=== PATIENT | male | born 1950 | race Caucasian/White ===

== ENCOUNTER 2022-11-29 18:16 | Observation (INO) | payer MEDICARE ==
[2022-11-29 19:00] LABS: Glucose,Whole Blood 468 mg/dL (70-110)
[2022-11-29] MEDS ORDERED: SODIUM CHLORIDE 0.9% 1,000 ML IV STA ×2 (19:51→23:06)
--- NOTE | 2022-11-29 20:00 | ED ---
Recheck HPI - General Chief Complaint: Recheck/Abnormal Lab/Rx Stated Complaint: High Sugar Level, Type 2 [place] Time Seen by Provider: 11/29/22 19:50 Source: patient, RN notes reviewed, old records reviewed, Caregiver Mode of arrival: wheelchair Limitations: no limitations - History of Present Illness Initial Comments: This is a 72-year-old male to the ER for evaluation of elevated blood sugar. Patient states his sugars been elevated for a few days now. He does have a blood sugar monitor and does have insulin-dependent diabetes. Patient has been taking his insulin medications as described once a day long-acting. Patient states his blood sugars have still been severely elevated feels lightheaded dizzy with occasional chills occasionally feeling warm. He denies any nausea vomiting or diarrhea. No headache chest pain shortness of breath abdominal pain with no recent fevers. Patient is recently new to the area the last 2 weeks and has no primary care in [facility] Complaint: abnormal lab (Elevated blood sugars) -: days(s) Returns Today for: Called Because of Abnormal Lab/Test Symptoms Since Prior Visit: no new symptoms Context: planned re-check, called for abnormal lab result Associated Symptoms: none Treatments Prior to Arrival: other (0) - Related Data Home Medications Medication Instructions Recorded Confirmed ALPRAZolam [Xanax] 0.5 mg PO DAILY PRN 11/29/22 11/29/22 Albuterol Inhaler [Ventolin Hfa 1 - 2 puff INHALATION RT-Q6H PRN 11/29/22 11/29/22 Inhaler] Clobetasol Propionate [Temovate 1 applic TOPICAL DIRECTED PRN 11/29/22 11/29/22 0.05% Oint] Clotrimazole [Clotrimazole AF] 1 applic TOPICAL BID PRN 11/29/22 11/29/22 DULoxetine HCL [Cymbalta] 60 mg PO BID 11/29/22 11/29/22 Diclofenac Sodium Gel [Voltaren 1 applic TOPICAL QID PRN 11/29/22 11/29/22 Gel] Donepezil [Aricept] 5 mg PO DAILY 11/29/22 11/29/22 Gabapentin 600 mg PO QID 11/29/22 11/29/22 Glucagon [Baqsimi] 1 spray NASAL DIRECTED PRN 11/29/22 11/29/22 Hydrocortisone Cream 1 applic TOPICAL BID PRN 11/29/22 11/29/22 [Hydrocortisone 1% Cream] Latanoprost [Latanoprost 0.005%] 1 drop BOTH EYES HS 11/29/22 11/29/22 Pantoprazole [Protonix] 40 mg PO DAILY 11/29/22 11/29/22 Primidone [Mysoline] 100 mg PO HS 11/29/22 11/29/22 Silver Sulfadiazine [SSD 1% Cream] 1 applic TOPICAL DIRECTED PRN 11/29/22 11/29/22 Tirzepatide [Mounjaro] 10 mg SQ WE 11/29/22 11/29/22 lisinopriL [Zestril] 5 mg PO DAILY 11/29/22 11/29/22 Previous Rx's Medication Instructions Recorded INSULIN ASPART (NovoLOG) [NovoLOG 0 unit SQ ACHS 30 Days #1 each 12/01/22 (formulary)] Insulin Degludec [Tresiba 60 units SQ HS #0 12/01/22 Flextouch U-100 Pen] Allergies Allergy/AdvReac Type Severity Reaction Status Date / Time No Known Allergies Allergy Verified 11/29/22 21:50 Review of Systems ROS Statement: Those systems with pertinent positive or pertinent negative responses have been documented in the HPI. ROS Other: All systems not noted in ROS Statement are negative. Past Medical History Past Medical History: Dementia, Diabetes Mellitus, Hypertension History of Any Multi-Drug Resistant Organisms: None Reported Past Surgical History: Joint Replacement Additional Past Surgical History / Comment(s): rt hip replacement 2012, bk lleft ampuatation Past Psychological History: No Psychological Hx Reported Smoking Status: Never smoker Past Alcohol Use History: None Reported Past Drug Use History: None Reported General Exam Limitations: no limitations General appearance: alert, in no apparent distress, anxious Head exam: Present: atraumatic, normocephalic, normal inspection Eye exam: Present: normal appearance, PERRL, EOMI. Absent: scleral icterus, conjunctival injection, periorbital swelling ENT exam: Present: normal exam, mucous membranes moist Neck exam: Present: normal inspection. Absent: tenderness, meningismus, lymphadenopathy Respiratory exam: Present: normal lung sounds bilaterally. Absent: respiratory distress, wheezes, rales, rhonchi, stridor Cardiovascular Exam: Present: regular rate, normal rhythm, normal heart sounds. Absent: systolic murmur, diastolic murmur, rubs, gallop, clicks GI/Abdominal exam: Present: soft, normal bowel sounds. Absent: distended, tenderness, guarding, rebound, rigid Extremities exam: Present: normal inspection, full ROM, normal capillary refill. Absent: tenderness, pedal edema, joint swelling, calf tenderness Back exam: Present: normal inspection Neurological exam: Present: alert, oriented X3, CN II-XII intact Psychiatric exam: Present: normal affect, normal mood Skin exam: Present: warm, dry, intact, normal color. Absent: rash Course Vital Signs 11/29/22 11/29/22 11/29/22 18:48 20:19 20:30 Temperature 98.8 F Pulse Rate 78 80 76 Pulse Rate [ Pulse Oximetery ] Respiratory 18 Rate Blood Pressure 168/75 155/93 Blood Pressure [Left Arm] O2 Sat by Pulse 97 100 97 Oximetry 11/29/22 11/30/22 11/30/22 21:00 00:39 00:56 Temperature 98.1 F Pulse Rate 74 75 Pulse Rate [ 80 Pulse Oximetery ] Respiratory 18 20 Rate Blood Pressure 140/80 149/83 Blood Pressure 169/71 [Left Arm] O2 Sat by Pulse 96 97 97 Oximetry - Reevaluation(s) Reevaluation #1: Medical record is reviewed Reevaluation #2: Patient's blood sugar remains elevated here in the ER patient states he has no primary care physician in the area to see Reevaluation #3: Patient informed results and questions have been answered Reevaluation #4: Was pt. sent in by a medical professional or institution (, PA, MAINTENANCE SHOP TECHNICIAN, urgent care, hospital, or [facility]...) When possible be specific @ -no Did you speak to anyone other than the patient for history (EMS, parent, family, police, friend...)? What history was obtained from this source @ -no Did you review nursing and triage notes (agree or disagree)? Why? @ -agree Are old charts reviewed (outside hosp., previous admission, EMS record, old EKG, old radiological studies, urgent care reports/EKG's, [facility] records)? Report findings @ -yes Differential Diagnosis (chest pain, altered mental status, abdominal pain women, abdominal pain men, vaginal bleeding, weakness, fever, dyspnea, syncope, headache, dizziness, GI bleed, back pain, seizure, CVA, palpatations, mental health, musculoskeletal)? @ -prior EKG interpreted by me (3pts min.). @ -yes X-rays interpreted by me (1pt min.). @ -no CT interpreted by me (1pt min.). @ -no U/S interpreted by me (1pt. min.). @ -no What testing was considered but not performed or refused? (CT, X-rays, U/S, labs)? Why? @ -none What meds were considered but not given or refused? Why? @ -none Did you discuss the management of the patient with other professionals (professionals i.e. , PA, MAINTENANCE SHOP TECHNICIAN, lab, RT, psych nurse, medical social consultant, clay preparation supervisor, teacher, financial services officer, rn case mgr)? Give summary @ -no Was smoking cessation discussed for >3mins.? @ -no Was critical care preformed (if so, how long)? @ -no Were there social determinants of health that impacted care today? How? (Homelessness, low income, unemployed, alcoholism, drug addiction, transportation, low edu. Level, literacy, decrease access to med. care, [facility], rehab)? @ -none Was there de-escalation of care discussed even if they declined (Discuss DNR or withdrawal of care, Hospice)? DNR status @ -no What co-morbidities impacted this encounter? (DM, HTN, Smoking, COPD, CAD, Cancer, CVA, ARF, Chemo, Hep., AIDS, mental health diagnosis, sleep apnea, morbid obesity)? @ -none Was patient admitted / discharged? Hospital course, mention meds given and route, prescriptions, significant lab abnormalities, going to OR and other pertinent info. @ - 72 male admitted for hyperglycemia, patient will need outpatient follow-up for blood sugar management, primary care as well as tighter glycemic control Admitted Undiagnosed new problem with uncertain prognosis? @ -no Drug Therapy requiring intensive monitoring for toxicity (Heparin, Nitro, Insulin, Cardizem)? @ -no Were any procedures done? @ -no Diagnosis/symptom? @ -Hyperglycemia known history of diabetes Acute, or Chronic, or Acute on Chronic? @ -Acute Uncomplicated (without systemic symptoms) or Complicated (systemic symptoms)? @ -Complicated Side effects of treatment? @ -no Exacerbation, Progression, or Severe Exacerbation? @ -exacerbation Poses a threat to life or bodily function? How? (Chest pain, [place], [place], pneumonia, PE, COPD, DKA, ARF, appy, cholecystitis, CVA, Diverticulitis, Homicidal, Suicidal, threat to staff... and all critical care pts) @ -yes Reevaluation #5: Differential Weakness: Hypoglycemia, shock, sepsis, hyponatremia, anemia, infection, TX, ETOH, adverse medicine reaction, overdose, stroke, this is not meant to be an all-inclusive list. - Consultations Consultation #1: Spoke with admitting physicians who agree to see this patient Medical Decision Making - Medical Decision Making 72 male admitted for hyperglycemia, patient will need outpatient follow-up for blood sugar management, primary care as well as tighter glycemic control - Lab Data Result diagrams: 11/30/22 07:46 11/30/22 07:46 Lab Results 11/29/22 11/29/22 11/29/22 Range/Units 18:58 19:55 20:28 WBC 10.2 (3.8-10.6) k/uL RBC 4.82 (4.30-5.90) m/uL Hgb 14.2 (13.0-17.5) gm/dL Hct 43.1 (39.0-53.0) % MCV 89.4 (80.0-100.0) fL MCH 29.4 (25.0-35.0) pg MCHC 32.9 (31.0-37.0) g/dL RDW 12.8 (11.5-15.5) % Plt Count 247 (150-450) k/uL MPV 7.9 Neutrophils % 69 % Lymphocytes % 21 % Monocytes % 6 % Eosinophils % 2 % Basophils % 0 % Neutrophils # 7.0 (1.3-7.7) k/uL Lymphocytes # 2.2 (1.0-4.8) k/uL Monocytes # 0.7 (0-1.0) k/uL Eosinophils # 0.2 (0-0.7) k/uL Basophils # 0.0 (0-0.2) k/uL Sodium (137-145) mmol/L Potassium (3.5-5.1) mmol/L Chloride (98-107) mmol/L Carbon Dioxide (22-30) mmol/L Anion Gap mmol/L BUN (9-20) mg/dL Creatinine (0.66-1.25) mg/dL Est GFR (CKD-EPI)AfAm (>60 ml/min/1.73 sqM) Est GFR (CKD-EPI)NonAf (>60 ml/min/1.73 sqM) Glucose (74-99) mg/dL POC Glucose (mg/dL) 468 H (70-110) mg/dL POC Glu [employer] ID Court Rajan Calcium (8.4-10.2) mg/dL Phosphorus (2.5-4.5) mg/dL Magnesium (1.6-2.3) mg/dL Total Bilirubin (0.2-1.3) mg/dL AST (17-59) U/L ALT (4-49) U/L Alkaline Phosphatase (38-126) U/L Troponin I (0.000-0.034) ng/mL Total Protein (6.3-8.2) g/dL Albumin (3.5-5.0) g/dL Urine Color Light Yellow Urine Appearance Clear (Clear) Urine pH 5.5 (5.0-8.0) Ur Specific [place] 1.030 (1.001-1.035) Urine Protein Negative (Negative) Urine Glucose (UA) 4+ H (Negative) Urine Ketones Negative (Negative) Urine Blood Negative (Negative) Urine Nitrite Negative (Negative) Urine Bilirubin Negative (Negative) Urine Urobilinogen <2.0 (<2.0) mg/dL Ur Leukocyte Esterase Negative (Negative) Acetone, Qual (Negative) 11/29/22 11/29/22 11/29/22 Range/Units 20:28 20:28 22:43 WBC (3.8-10.6) k/uL RBC (4.30-5.90) m/uL Hgb (13.0-17.5) gm/dL Hct (39.0-53.0) % MCV (80.0-100.0) fL MCH (25.0-35.0) pg MCHC (31.0-37.0) g/dL RDW (11.5-15.5) % Plt Count (150-450) k/uL MPV Neutrophils % % Lymphocytes % % Monocytes % % Eosinophils % % Basophils % % Neutrophils # (1.3-7.7) k/uL Lymphocytes # (1.0-4.8) k/uL Monocytes # (0-1.0) k/uL Eosinophils # (0-0.7) k/uL Basophils # (0-0.2) k/uL Sodium 133 L (137-145) mmol/L Potassium 4.5 (3.5-5.1) mmol/L Chloride 97 L (98-107) mmol/L Carbon Dioxide 26 (22-30) mmol/L Anion Gap 10 mmol/L BUN 24 H (9-20) mg/dL Creatinine 1.26 H (0.66-1.25) mg/dL Est GFR (CKD-EPI)AfAm 65 (>60 ml/min/1.73 sqM) Est GFR (CKD-EPI)NonAf 57 (>60 ml/min/1.73 sqM) Glucose 441 H (74-99) mg/dL POC Glucose (mg/dL) 342 H (70-110) mg/dL POC Glu [employer] Superintendent ID Yaima Mclaughlin Calcium 9.2 (8.4-10.2) mg/dL Phosphorus 4.8 H (2.5-4.5) mg/dL Magnesium 2.0 (1.6-2.3) mg/dL Total Bilirubin 0.5 (0.2-1.3) mg/dL AST 17 (17-59) U/L ALT 16 (4-49) U/L Alkaline Phosphatase 98 (38-126) U/L Troponin I <0.012 (0.000-0.034) ng/mL Total Protein 7.1 (6.3-8.2) g/dL Albumin 3.9 (3.5-5.0) g/dL Urine Color Urine Appearance (Clear) Urine pH (5.0-8.0) Ur Specific [place] (1.001-1.035) Urine Protein (Negative) Urine Glucose (UA) (Negative) Urine Ketones (Negative) Urine Blood (Negative) Urine Nitrite (Negative) Urine Bilirubin (Negative) Urine Urobilinogen (<2.0) mg/dL Ur Leukocyte Esterase (Negative) Acetone, Qual Negative (Negative) - EKG Data -: EKG Interpreted by Me (EKG is sinus 76 MI 196 QRS 132 QTC is 449) Disposition Clinical Impression: Hyperglycemia Disposition: ADMITTED IP TO THIS HOSP Condition: Fair Is patient prescribed a controlled substance at d/c from ED?: No Time of Disposition: 23:20
[2022-11-29 20:17] LABS: Appearance,Urine Clear (Clear); Bilirubin,Urine Negative (Negative); Blood,Urine Negative (Negative); Color,Urine Light Yellow; Glucose,Urine (UA) 4+ (Negative); Ketones,Urine Negative (Negative); Leukocyte Esterase,Urine Negative (Negative); Nitrite,Urine Negative (Negative); PH, Urine 5.5 (5.0-8.0); Protein,Urine Negative (Negative); Urobilinogen,Urine <2.0 mg/dL (<2.0)
[2022-11-29 20:46] LABS: Basophils % (A) 0 %; Eosinophils # (A) 0.2 k/uL (0-0.7); Eosinophils % (A) 2 %; HCT 43.1 % (39.0-53.0); HGB 14.2 gm/dL (13.0-17.5); Lymphocytes # (A) 2.2 k/uL (1.0-4.8); Lymphocytes % (A) 21 %; MCH 29.4 pg (25.0-35.0); MCHC 32.9 g/dL (31.0-37.0); MCV 89.4 fL (80.0-100.0); Mean Platelet Volume 7.9; Monocytes # (A) 0.7 k/uL (0-1.0); Monocytes % (A) 6 %; Neutrophils % (A) 69 %; Platelet Count 247 k/uL (150-450); RBC 4.82 m/uL (4.30-5.90); RDW 12.8 % (11.5-15.5); WBC 10.2 k/uL (3.8-10.6)
[2022-11-29 21:00] LABS: ALT 16 U/L (4-49); AST 17 U/L (17-59); African American GFR (CKD) 65 (>60 ml/min/1.73 sqM); Albumin 3.9 g/dL (3.5-5.0); Alkaline Phosphatase 98 U/L (38-126); Anion Gap 10 mmol/L; Blood Urea Nitrogen 24 mg/dL (9-20); Calcium 9.2 mg/dL (8.4-10.2); Carbon Dioxide 26 mmol/L (22-30); Chloride 97 mmol/L (98-107); Glucose 441 mg/dL (74-99); Non-African American GFR(CKD) 57 (>60 ml/min/1.73 sqM); Phosphorus 4.8 mg/dL (2.5-4.5); Potassium 4.5 mmol/L (3.5-5.1); Sodium 133 mmol/L (137-145); Total Bilirubin 0.5 mg/dL (0.2-1.3); Total Protein 7.1 g/dL (6.3-8.2)
[2022-11-29 22:47] LABS: Glucose,Whole Blood 342 mg/dL (70-110)
[2022-11-29] MEDS ORDERED: ONDANSETRON 4 MG/2 ML VIAL IVP PRN (23:06)
[2022-11-29] MEDS ORDERED: NALOXONE 0.4 MG/ML 1 ML VIAL IV PRN (23:06)
[2022-11-30] MEDS: SODIUM CHLORIDE 0.9% 1,000 ML IV SCH ×3 (01:18→22:15)
[2022-11-30] MEDS ORDERED: ALBUTEROL NEBULIZED 2.5 MG/3 ML INHALATION PRN (07:46)
[2022-11-30 08:33] LABS: Basophils % (A) 0 %; Eosinophils # (A) 0.3 k/uL (0-0.7); Eosinophils % (A) 3 %; HCT 40.9 % (39.0-53.0); HGB 13.3 gm/dL (13.0-17.5); Lymphocytes % (A) 21 %; MCH 28.7 pg (25.0-35.0); MCHC 32.4 g/dL (31.0-37.0); MCV 88.5 fL (80.0-100.0); Mean Platelet Volume 7.8; Monocytes # (A) 0.6 k/uL (0-1.0); Monocytes % (A) 6 %; Neutrophils # (A) 6.8 k/uL (1.3-7.7); Neutrophils % (A) 69 %; Platelet Count 238 k/uL (150-450); RBC 4.62 m/uL (4.30-5.90); RDW 12.8 % (11.5-15.5); WBC 9.9 k/uL (3.8-10.6)
[2022-11-30 09:08] LABS: ALT 14 U/L (4-49); AST 16 U/L (17-59); African American GFR (CKD) 85 (>60 ml/min/1.73 sqM); Albumin 3.1 g/dL (3.5-5.0); Alkaline Phosphatase 83 U/L (38-126); Anion Gap 5 mmol/L; Blood Urea Nitrogen 19 mg/dL (9-20); Calcium 8.4 mg/dL (8.4-10.2); Carbon Dioxide 28 mmol/L (22-30); Chloride 104 mmol/L (98-107); Glucose 184 mg/dL (74-99); Magnesium 1.8 mg/dL (1.6-2.3); Non-African American GFR(CKD) 73 (>60 ml/min/1.73 sqM); Potassium 4.5 mmol/L (3.5-5.1); Sodium 137 mmol/L (137-145); Total Bilirubin 0.5 mg/dL (0.2-1.3)
[2022-11-30] MEDS: PANTOPRAZOLE 40 MG/10 ML VIAL IV SCH (09:26)
[2022-11-30] MEDS ORDERED: ALPRAZolam 0.5 MG TAB PO PRN (09:37)
[2022-11-30] MEDS ORDERED: DEXTROSE 50% SYRINGE 50 ML IVP PRN ×2 (09:39)
[2022-11-30] MEDS ORDERED: PANTOPRAZOLE 40 MG TABLET PO SCH (09:45)
[2022-11-30 11:17] VITALS: BMI 30.1
[2022-11-30 11:31] LABS: Glucose,Whole Blood 219 mg/dL (70-110)
[2022-11-30] MEDS: INSULIN ASPART (NovoLOG) 100 UNIT/ML VIAL SQ SCH ×3 (12:01→21:53)
[2022-11-30] MEDS: INSULIN DETEMIR (LEVEMIR) 100 UNIT/ML SYR SQ SCH ×2 (13:06→21:53)
[2022-11-30] MEDS: GABAPENTIN 300 MG CAP PO SCH ×4 (13:06→21:53)
[2022-11-30] MEDS: lisinopriL 5 MG TAB PO SCH (13:06)
[2022-11-30] MEDS: MORPHINE SULFATE 4 MG/ML SYRINGE IV PRN ×3 (13:11→21:52)
--- NOTE | 2022-11-30 13:14 | P.HPIM ---
History of Present Illness H&P Date: 11/30/22 History of present illness; patient is 72-year-old gentleman with past medical history significant for insulin-dependent diabetes mellitus, hypertension presented to the ER because of elevated blood sugar levels. Patient has been checking his blood sugars at home but has been noticing that the last few days his blood sugar has been elevated, even though patient has been compliant with his insulin regimen. Patient is supposed to take long-acting insulin 50 units at night. Patient has been complaining of dizziness and feeling dehydrated. Denies any fever or chills. Denies any nausea, vomiting abdominal pain. Denies any chest pain or shortness of breath. Denies any increased frequency of urination. Denies any hematuria. Because of the symptoms, patient came to the ER Initial lab work done in the ER showed WBC 10.2, hemoglobin 14.2, platelet count 247, sodium 133, potassium 4.5, BUN 24, creatinine 1.26, blood sugars 441 EKG done in the ER, ventricular rate 76, QRS 132, no ST segment elevation noted, no T-wave inversion patient admitted to medicine service REVIEW OF SYSTEMS: CONSTITUTIONAL: As mentioned in HPI HEENT: No recent visual problems or hearing problems. Denied any sore throat. CARDIOVASCULAR: No chest pain, orthopnea, PND, no palpitations, no syncope. PULMONARY: No shortness of breath, no cough, no hemoptysis. GASTROINTESTINAL: As mentioned in HPI NEUROLOGICAL: No headaches, no weakness, no numbness. HEMATOLOGICAL: Denies any bleeding or petechiae. GENITOURINARY: Denies any burning micturition, frequency, or urgency. MUSCULOSKELETAL/RHEUMATOLOGICAL: Denies any joint pain, swelling, or any muscle pain. ENDOCRINE: Denies any polyuria or polydipsia. The rest of the 14-point review of systems is negative. PHYSICAL EXAMINATION: GENERAL: The patient is alert and oriented x3, not in any acute distress. Well developed, well nourished. HEENT: Pupils are round and equally reacting to light. EOMI. No scleral icterus. No conjunctival pallor. Normocephalic, atraumatic. No pharyngeal erythema. No thyromegaly. CARDIOVASCULAR: S1 and S2 present. No murmurs, rubs, or gallops. PULMONARY: Chest is clear to auscultation, no wheezing or crackles. ABDOMEN: Soft, nontender, nondistended, normoactive bowel sounds. No palpable organomegaly. MUSCULOSKELETAL: No joint swelling or deformity. EXTREMITIES: No cyanosis, clubbing, or pedal edema. Left BKA noted NEUROLOGICAL: Gross neurological examination did not reveal any focal deficits. SKIN: No rashes. Assessment and plan Hyperglycemia Insulin-dependent diabetes mellitus Hypertension Monitor vital signs Monitor CBC Monitor CMP Monitor blood sugar levels Start patient on Lantus 25 units twice a day Start patient on sliding scale insulin moderate intensity HbA1c level ordered Continue IV fluids Resume home meds Labs and medication were reviewed.. Continue same treatment. Continue with symptomatic treatment. Resume home medication. Monitor labs and vitals. DVT a nd GI prophylaxis. Further recommendations as per clinical course of the patient Dictation was produced using Proteopure dictation software. please excuse any grammatical, word or spelling errors. Past Medical History Past Medical History: Dementia, Diabetes Mellitus, Hypertension History of Any Multi-Drug Resistant Organisms: None Reported Past Surgical History: Joint Replacement Additional Past Surgical History / Comment(s): rt hip replacement 2012, bk lleft ampuatation Past Anesthesia/Blood Transfusion Reactions: No Reported Reaction Past Psychological History: No Psychological Hx Reported Smoking Status: Never smoker Past Alcohol Use History: None Reported Past Drug Use History: None Reported Medications and Allergies Home Medications Medication Instructions Recorded Confirmed Type ALPRAZolam [Xanax] 0.5 mg PO DAILY PRN 11/29/22 11/29/22 History Albuterol Inhaler [Ventolin Hfa 1 - 2 puff INHALATION RT-Q6H PRN 11/29/22 11/29/22 History Inhaler] Clobetasol Propionate [Temovate 1 applic TOPICAL DIRECTED PRN 11/29/22 11/29/22 History 0.05% Oint] Clotrimazole [Clotrimazole AF] 1 applic TOPICAL BID PRN 11/29/22 11/29/22 History DULoxetine HCL [Cymbalta] 60 mg PO BID 11/29/22 11/29/22 History Diclofenac Sodium Gel [Voltaren 1 applic TOPICAL QID PRN 11/29/22 11/29/22 History Gel] Donepezil [Aricept] 5 mg PO DAILY 11/29/22 11/29/22 History Gabapentin 600 mg PO QID 11/29/22 11/29/22 History Glucagon [Baqsimi] 1 spray NASAL DIRECTED PRN 11/29/22 11/29/22 History Hydrocortisone Cream 1 applic TOPICAL BID PRN 11/29/22 11/29/22 History [Hydrocortisone 1% Cream] Insulin Degludec [Tresiba 50 - 60 units SQ HS 11/29/22 11/29/22 History Flextouch U-100 Pen] Latanoprost [Latanoprost 0.005%] 1 drop BOTH EYES HS 11/29/22 11/29/22 History Pantoprazole [Protonix] 40 mg PO DAILY 11/29/22 11/29/22 History Primidone [Mysoline] 100 mg PO HS 11/29/22 11/29/22 History Silver Sulfadiazine [SSD 1% Cream] 1 applic TOPICAL DIRECTED PRN 11/29/22 11/29/22 History Tirzepatide [Mounjaro] 10 mg SQ WE 11/29/22 11/29/22 History lisinopriL [Zestril] 5 mg PO DAILY 11/29/22 11/29/22 History Allergies Allergy/AdvReac Type Severity Reaction Status Date / Time No Known Allergies Allergy Verified 11/29/22 21:50 Physical Exam Vitals: Vital Signs Temp Pulse Pulse Resp BP BP Pulse Ox 11/30/22 07:54 97 11/30/22 07:30 80 20 11/30/22 07:05 98.2 F 81 19 129/64 98 11/30/22 00:56 98.1 F 80 20 169/71 97 11/30/22 00:39 75 18 149/83 97 11/29/22 21:00 74 140/80 96 11/29/22 20:30 76 155/93 97 11/29/22 20:19 80 100 11/29/22 18:48 98.8 F 78 18 168/75 97 Intake and Output 11/29/22 11/30/22 11/30/22 22:59 06:59 14:59 Intake Total 1280 Balance 1280 Intake: Intake, IV Titration 1040 Amount Sodium Chloride 0.9% 1, 1040 000 ml @ 130 mls/hr IV . [id number] [facility] Rx#:[id number] Oral 240 Other: Voiding Method Urinal # Voids 1 1 Weight 95.254 kg 95.254 kg Results CBC & Chem 7: 11/30/22 07:46 11/30/22 07:46 Labs: Abnormal Lab Results - Last 24 Hours (Table) 11/29/22 11/29/22 11/29/22 Range/Units 18:58 19:55 20:28 Sodium 133 L (137-145) mmol/L Chloride 97 L (98-107) mmol/L BUN 24 H (9-20) mg/dL Creatinine 1.26 H (0.66-1.25) mg/dL Glucose 441 H (74-99) mg/dL POC Glucose (mg/dL) 468 H (70-110) mg/dL Hemoglobin A1c (<=6.0) % Phosphorus 4.8 H (2.5-4.5) mg/dL AST (17-59) U/L Total Protein (6.3-8.2) g/dL Albumin (3.5-5.0) g/dL Urine Glucose (UA) 4+ H (Negative) 11/29/22 11/30/22 11/30/22 Range/Units 22:43 00:17 07:46 Sodium (137-145) mmol/L Chloride (98-107) mmol/L BUN (9-20) mg/dL Creatinine (0.66-1.25) mg/dL Glucose 184 H (74-99) mg/dL POC Glucose (mg/dL) 342 H (70-110) mg/dL Hemoglobin A1c 9.6 H (<=6.0) % Phosphorus (2.5-4.5) mg/dL AST 16 L (17-59) U/L Total Protein 6.0 L (6.3-8.2) g/dL Albumin 3.1 L (3.5-5.0) g/dL Urine Glucose (UA) (Negative) Thrombosis Risk Factor Assmnt - Choose All That Apply Each Risk Factor Represents 2 Points: Age 61-74 years Other congenital or acquired thrombophilia - If yes, enter type in comment: No Thrombosis Risk Factor Assessment Total Risk Factor Score: 2 Thrombosis Risk Factor Assessment Level: Low Risk
[2022-11-30 16:37] LABS: Glucose,Whole Blood 240 mg/dL (70-110)
[2022-11-30 20:33] LABS: Glucose,Whole Blood 191 mg/dL (70-110)
[2022-11-30] MEDS ORDERED: PRIMIDONE 50 MG TAB PO SCH (21:00)
[2022-11-30] MEDS ORDERED: LATANOPROST 0.005% OPHTH DROPS 2.5 ML BTL BOTH EYES SCH (21:00)
[2022-11-30] MEDS: DULoxetine HCL 60 MG CAPSULE.DR PO SCH (21:53)
[2022-12-01] MEDS: MORPHINE SULFATE 4 MG/ML SYRINGE IV PRN ×2 (02:24→06:13)
[2022-12-01] MEDS: SODIUM CHLORIDE 0.9% 1,000 ML IV SCH (05:47)
[2022-12-01 05:59] LABS: Glucose,Whole Blood 160 mg/dL (70-110)
[2022-12-01] MEDS: INSULIN ASPART (NovoLOG) 100 UNIT/ML VIAL SQ SCH ×2 (06:12→12:38)
[2022-12-01] MEDS: INSULIN DETEMIR (LEVEMIR) 100 UNIT/ML SYR SQ SCH (06:12)
[2022-12-01 08:19] VITALS: BP 125/69; PULSE 72; RESP 16; TEMP 97.7
[2022-12-01] MEDS: PANTOPRAZOLE 40 MG/10 ML VIAL IV SCH (08:28)
[2022-12-01] MEDS: lisinopriL 5 MG TAB PO SCH (08:28)
[2022-12-01] MEDS: GABAPENTIN 300 MG CAP PO SCH ×2 (08:28→12:38)
[2022-12-01] MEDS: DULoxetine HCL 60 MG CAPSULE.DR PO SCH (08:28)
[2022-12-01] MEDS ORDERED: DONEPEZIL 5 MG TAB PO SCH (09:00)
[2022-12-01] MEDS ORDERED: CYCLOBENZAPRINE 10 MG TAB PO STA (10:49)
[2022-12-01] MEDS ORDERED: BACITRACIN OINT 1 EACH PACKET TOPICAL SCH (11:00)
[2022-12-01 11:44] LABS: Glucose,Whole Blood 170 mg/dL (70-110)
--- NOTE | 2022-12-01 12:49 | P.DS ---
Providers Date of admission: 11/29/22 23:07 Expected date of discharge: 12/01/22 Attending physician: Miguel Knowles Primary care physician: Physician Nonstaff Hospital Course: Discharge diagnoses; Hyperglycemia Insulin-dependent diabetes mellitus Hypertension Hospital course; patient is 72-year-old gentleman with past medical history significant for insulin-dependent diabetes mellitus, hypertension presented to the ER because of elevated blood sugar levels. Patient has been checking his blood sugars at home but has been noticing that the last few days his blood sugar has been elevated, even though patient has been compliant with his insulin regimen. Patient is supposed to take long-acting insulin 50 units at night. Patient has been complaining of dizziness and feeling dehydrated. Denies any fever or chills. Denies any nausea, vomiting abdominal pain. Denies any chest pain or shortness of breath. Denies any increased frequency of urination. Denies any hematuria. Because of the symptoms, patient came to the ER Initial lab work done in the ER showed WBC 10.2, hemoglobin 14.2, platelet count 247, sodium 133, potassium 4.5, BUN 24, creatinine 1.26, blood sugars 441 EKG done in the ER, ventricular rate 76, QRS 132, no ST segment elevation noted, no T-wave inversion patient admitted to medicine service 12/01. Patient seen and examined. Patient blood sugars have been under control while in the hospital, dose of long acting insulin at discharge changed to 60 units at night. Patient being discharged with sliding scale insulin as well PHYSICAL EXAMINATION: GENERAL: The patient is alert and oriented x3, not in any acute distress. Well developed, well nourished. HEENT: Pupils are round and equally reacting to light. EOMI. No scleral icterus. No conjunctival pallor. Normocephalic, atraumatic. No pharyngeal erythema. No thyromegaly. CARDIOVASCULAR: S1 and S2 present. No murmurs, rubs, or gallops. PULMONARY: Chest is clear to auscultation, no wheezing or crackles. ABDOMEN: Soft, nontender, nondistended, normoactive bowel sounds. No palpable organomegaly. MUSCULOSKELETAL: Left BKA noted EXTREMITIES: No cyanosis, clubbing, or pedal edema. NEUROLOGICAL: Gross neurological examination did not reveal any focal deficits. SKIN: No rashes. Dictation was produced using GoProation software. please excuse any grammatical, word or spelling errors. Patient Condition at Discharge: Fair Plan - Discharge Summary Discharge Rx Participant: Yes New Discharge Prescriptions: New INSULIN ASPART (NovoLOG) [NovoLOG (formulary)] 0 unit SQ ACHS 30 Days #1 each Continue Clobetasol Propionate [Temovate 0.05% Oint] 1 applic TOPICAL DIRECTED PRN PRN Reason: skin issues Diclofenac Sodium Gel [Voltaren Gel] 1 applic TOPICAL QID PRN PRN Reason: Pain Clotrimazole [Clotrimazole AF] 1 applic TOPICAL BID PRN PRN Reason: skin issues/rash lisinopriL [Zestril] 5 mg PO DAILY Latanoprost [Latanoprost 0.005%] 1 drop BOTH EYES HS Primidone [Mysoline] 100 mg PO HS Pantoprazole [Protonix] 40 mg PO DAILY Albuterol Inhaler [Ventolin Hfa Inhaler] 1 - 2 puff INHALATION RT-Q6H PRN PRN Reason: Shortness Of Breath Hydrocortisone Cream [Hydrocortisone 1% Cream] 1 applic TOPICAL BID PRN PRN Reason: Dry Skin/rash Glucagon [Baqsimi] 1 spray NASAL DIRECTED PRN PRN Reason: LOW BLOOD SUGAR Gabapentin 600 mg PO QID DULoxetine HCL [Cymbalta] 60 mg PO BID ALPRAZolam [Xanax] 0.5 mg PO DAILY PRN PRN Reason: Anxiety Tirzepatide [Mounjaro] 10 mg SQ WE Donepezil [Aricept] 5 mg PO DAILY Silver Sulfadiazine [SSD 1% Cream] 1 applic TOPICAL DIRECTED PRN PRN Reason: skin issues/wounds Changed Insulin Degludec [Tresiba Flextouch U-100 Pen] 60 units SQ HS #0 Discharge Medication List ALPRAZolam [Xanax] 0.5 mg PO DAILY PRN 11/29/22 [History] Albuterol Inhaler [Ventolin Hfa Inhaler] 1 - 2 puff INHALATION RT-Q6H PRN [History] Clobetasol Propionate [Temovate 0.05% Oint] 1 applic TOPICAL DIRECTED PRN 11/29/22 [History] Clotrimazole [Clotrimazole AF] 1 applic TOPICAL BID PRN 11/29/22 [History] DULoxetine HCL [Cymbalta] 60 mg PO BID 11/29/22 [History] Diclofenac Sodium Gel [Voltaren Gel] 1 applic TOPICAL QID PRN 11/29/22 [History] Donepezil [Aricept] 5 mg PO DAILY 11/29/22 [History] Gabapentin 600 mg PO QID 11/29/22 [History] Glucagon [Baqsimi] 1 spray NASAL DIRECTED PRN 11/29/22 [History] Hydrocortisone Cream [Hydrocortisone 1% Cream] 1 applic TOPICAL BID PRN 11/29/22 [History] Latanoprost [Latanoprost 0.005%] 1 drop BOTH EYES HS 11/29/22 [History] Pantoprazole [Protonix] 40 mg PO DAILY 11/29/22 [History] Primidone [Mysoline] 100 mg PO HS 11/29/22 [History] Silver Sulfadiazine [SSD 1% Cream] 1 applic TOPICAL DIRECTED PRN 11/29/22 [History] Tirzepatide [Mounjaro] 10 mg SQ WE 11/29/22 [History] lisinopriL [Zestril] 5 mg PO DAILY 11/29/22 [History] INSULIN ASPART (NovoLOG) [NovoLOG (formulary)] 0 unit SQ ACHS 30 Days #1 each 12/01/22 [Rx] Insulin Degludec [Tresiba Flextouch U-100 Pen] 60 units SQ HS #0 12/01/22 [Rx] Follow up Appointment(s)/Referral(s): Nonstaff,Physician [Primary Care Provider] - 1-2 days Sameer Acosta MD [STAFF PHYSICIAN] - 1 Week
== END 2022-12-01 14:39 | disposition home or self-care (01) ==
LOC: EC 18:16 → 4SSUR 23:07
PROVIDERS: ADMIT Hospitalist; ATTEND Hospitalist
DX: E11.65 Type 2 diabetes mellitus with hyperglycemia (principal); I10 Essential (primary) hypertension; F03.90 Unspecified dementia, unspecified severity, without behavioral disturbance, psychotic disturbance, mood disturbance, and anxiety; Z79.899 Other long term (current) drug therapy; Z79.4 Long term (current) use of insulin; Z96.641 Presence of right artificial hip joint
CPT/HCPCS: 96376 ×2; 96361 ×3; 96374; 96375; 99285; 36415; 94760; 93005; 80053 ×2; 82009; 83735 ×2; 84100 ×2; 84484; 85025 ×2; 81003; 83036; G0378 ×3; J2270 ×2; C9113 ×2

== ENCOUNTER 2023-12-28 01:42 | Inpatient (IN) | payer MEDICARE ==
[2023-12-28 01:50] LABS: Glucose,Whole Blood >600 mg/dL (70-110)
[2023-12-28 02:22] LABS: Basophils # (A) 0.1 k/uL (0-0.2); Basophils % (A) 1 %; Eosinophils # (A) 0.1 k/uL (0-0.7); Eosinophils % (A) 2 %; HCT 42.9 % (39.0-53.0); HGB 13.9 gm/dL (13.0-17.5); Lymphocytes # (A) 1.5 k/uL (1.0-4.8); Lymphocytes % (A) 17 %; MCH 28.6 pg (25.0-35.0); MCHC 32.3 g/dL (31.0-37.0); MCV 88.7 fL (80.0-100.0); Mean Platelet Volume 7.9; Monocytes # (A) 0.6 k/uL (0-1.0); Monocytes % (A) 7 %; Neutrophils # (A) 6.7 k/uL (1.3-7.7); Neutrophils % (A) 72 %; Platelet Count 227 k/uL (150-450); RBC 4.84 m/uL (4.30-5.90); RDW 12.9 % (11.5-15.5); WBC 9.3 k/uL (3.8-10.6)
[2023-12-28 02:41] LABS: ALT 17 U/L (4-49); AST 21 U/L (17-59); African American GFR (CKD) 51 (>60 ml/min/1.73 sqM); Alkaline Phosphatase 110 U/L (38-126); Blood Urea Nitrogen 37 mg/dL (9-20); Calcium 9.2 mg/dL (8.4-10.2); Carbon Dioxide 19 mmol/L (22-30); Chloride 75 mmol/L (98-107); Non-African American GFR(CKD) 44 (>60 ml/min/1.73 sqM); Potassium 4.4 mmol/L (3.5-5.1); Total Bilirubin 0.7 mg/dL (0.2-1.3); Total Protein 6.5 g/dL (6.3-8.2)
[2023-12-28] MEDS: SODIUM CHLORIDE 0.9% 1,000 ML IV STA (02:54)
[2023-12-28 03:14] LABS: Anion Gap 27 mmol/L; Sodium 121 mmol/L (137-145)
[2023-12-28 03:15] LABS: Glucose 828 mg/dL (74-99)
--- NOTE | 2023-12-28 03:59 | ED ---
General Adult HPI - General Chief complaint: Recheck/Abnormal Lab/Rx Stated complaint: abnormal labs Time Seen by Provider: 12/28/23 01:43 Source: patient, EMS Mode of arrival: EMS - History of Present Illness Initial comments: 73-year-old male with past medical history of dementia, diabetes who is insulin- dependent who presents the emergency department with high blood sugar. Patient normally wears a glucose monitor which is downloaded to his phone. states that they have had difficulty downloading his readings for the past several days so they have been unaware of what his sugars have been running. He does take postprandial and long-acting insulin. He did take 70 units of his long-acting tonight. The patient ambulated to the bathroom and was feeling dizzy. EMS was called to the house and found the patient to have an extremely high glucose level. Patient denies any recent changes in his medications. He is a very poor historian. He denies any pain. No vomiting. He does admit that he has been compliant. No other alleviating, precipitating or modifying factors - Related Data Home Medications Medication Instructions Recorded Confirmed DULoxetine HCL [Cymbalta] 60 mg PO BID 11/29/22 12/28/23 Pantoprazole [Protonix] 40 mg PO DAILY 11/29/22 12/28/23 Primidone [Mysoline] 100 mg PO HS 11/29/22 12/28/23 Insulin Degludec [Tresiba 1 dose SQ DIRECTED 12/28/23 12/28/23 Flextouch U-100 Pen] Pregabalin [Lyrica] 300 mg PO HS 12/28/23 12/28/23 Tirzepatide [Mounjaro] 10 mg SQ WE 12/28/23 12/28/23 amLODIPine [Norvasc] 10 mg PO DAILY 12/28/23 12/28/23 lisinopriL [Prinivil] 20 mg PO DAILY 12/28/23 12/28/23 metFORMIN HCL ER [Glucophage XR] 500 mg PO DAILY 12/28/23 12/28/23 Previous Rx's Medication Instructions Recorded Amoxic-Pot Clav 875-125Mg 1 tab PO Q12HR 7 Days #14 tab 12/31/23 [Augmentin 875-125] Allergies Allergy/AdvReac Type Severity Reaction Status Date / Time No Known Allergies Allergy Verified 12/28/23 10:05 Review of Systems ROS Statement: Those systems with pertinent positive or pertinent negative responses have been documented in the HPI. ROS Other: All systems not noted in ROS Statement are negative. Past Medical History Past Medical History: Dementia, Diabetes Mellitus, Hypertension History of Any Multi-Drug Resistant Organisms: None Reported Past Surgical History: Joint Replacement Additional Past Surgical History / Comment(s): rt hip replacement 2012, bk lleft ampuatation Past Anesthesia/Blood Transfusion Reactions: No Reported Reaction Past Psychological History: No Psychological Hx Reported Smoking Status: Never smoker Past Alcohol Use History: None Reported Past Drug Use History: None Reported General Exam Limitations: altered mental status (dementia history - at his baseline per ) General appearance: alert, in no apparent distress Head exam: Present: atraumatic, normocephalic, normal inspection Eye exam: Present: normal appearance, PERRL, EOMI. Absent: scleral icterus, conjunctival injection, periorbital swelling ENT exam: Present: normal exam, mucous membranes moist Neck exam: Present: normal inspection. Absent: tenderness, meningismus, lymphadenopathy Respiratory exam: Present: normal lung sounds bilaterally. Absent: respiratory distress, wheezes, rales, rhonchi, stridor Cardiovascular Exam: Present: regular rate, normal rhythm, normal heart sounds. Absent: systolic murmur, diastolic murmur, rubs, gallop, clicks GI/Abdominal exam: Present: soft, normal bowel sounds. Absent: distended, tenderness, guarding, rebound, rigid Extremities exam: Present: normal inspection, full ROM, normal capillary refill. Absent: tenderness, pedal edema, joint swelling, calf tenderness Back exam: Present: normal inspection Neurological exam: Present: alert, oriented X3, CN II-XII intact Psychiatric exam: Present: normal affect, normal mood Skin exam: Present: warm, dry, intact, normal color. Absent: rash Course Vital Signs 12/28/23 12/28/23 12/28/23 01:44 03:58 05:49 Temperature 98.3 F 97.6 F Pulse Rate 79 75 73 Respiratory 16 15 18 Rate Blood Pressure 159/91 172/87 155/92 O2 Sat by Pulse 97 96 96 Oximetry 12/28/23 12/28/23 12/28/23 08:00 10:50 13:40 Temperature Pulse Rate 80 73 73 Respiratory 20 18 18 Rate Blood Pressure 121/75 134/76 132/79 O2 Sat by Pulse 96 95 95 Oximetry 12/28/23 15:36 Temperature Pulse Rate Respiratory 18 Rate Blood Pressure O2 Sat by Pulse Oximetry Medical Decision Making - Medical Decision Making Was pt. sent in by a medical professional or institution ([facility], [facility], urgent care, hospital, or residential...) When possible be specific @ -No Did you speak to anyone other than the patient for history (EMS, parent, family, police, friend...)? What history was obtained from this source @ -Spoke with EMS for history Did you review nursing and triage notes (agree or disagree)? Why? @ -I reviewed and agree with nursing and triage notes Were old charts reviewed (outside hosp., previous admission, EMS record, old EKG, old radiological studies, urgent care reports/EKG's, residential records)? Report findings @ -No old charts were reviewed Differential Diagnosis (chest pain, altered mental status, abdominal pain women, abdominal pain men, vaginal bleeding, weakness, fever, dyspnea, syncope, headache, dizziness, GI bleed, back pain, seizure, CVA, palpatations, mental health, musculoskeletal)? @ -Differential Altered Mental Status: Hypoglycemia, DKA, hypercapnia, ETOH, overdose, CO poisoning, trauma, myxedema coma, HTN encephalopathy, infection, encephalitis, psychosis, intercranial hemorrhage, hepatic encephalopathy, meningitis, CVA, this is not meant to be an all-inclusive list EKG interpreted by me (3pts min.). @ -Yes and demonstrates sinus rhythm with a rate of 79. CO interval 134. QRS 149. QTc of 454. No acute ST segment elevation. Bundle branch block. X-rays interpreted by me (1pt min.). @ -None done CT interpreted by me (1pt min.). @ -None done U/S interpreted by me (1pt. min.). @ -None done What testing was considered but not performed or refused? (CT, X-rays, U/S, labs)? Why? @ -None What meds were considered but not given or refused? Why? @ -None Did you discuss the management of the patient with other professionals (professionals i.e. [facility], [facility], lab, RT, psych nurse, web content & social media manager, granite cutter, teacher, community reinvestment act officer, field nurse case manager)? Give summary @ -Spoke with Asya from [facility] for admission Was smoking cessation discussed for >3mins.? @ -No Was critical care preformed (if so, how long)? @ -Yes, 35 minutes for management of insulin drip for DKA Were there social determinants of health that impacted care today? How? (Homelessness, low income, unemployed, alcoholism, drug addiction, transportati on, low edu. Level, literacy, decrease access to med. care, correction, rehab)? @ -No Was there de-escalation of care discussed even if they declined (Discuss DNR or withdrawal of care, Hospice)? DNR status @ -No What co-morbidities impacted this encounter? (DM, HTN, Smoking, COPD, CAD, Cancer, CVA, ARF, Chemo, Hep., AIDS, mental health diagnosis, sleep apnea, morbid obesity)? @ -Diabetes mellitus Was patient admitted / discharged? Hospital course, mention meds given and route, prescriptions, significant lab abnormalities, going to OR and other pertinent info. @ -Upon arrival patient seen and evaluated in room 6. Thorough history and physical exam was performed. IV access was established. Laboratory studies were conducted. Patient does meet DKA criteria. Patient started on insulin drip. Will be admitted. Spoke with Asya from [facility] Undiagnosed new problem with uncertain prognosis? @ -No Drug Therapy requiring intensive monitoring for toxicity (Heparin, Nitro, Insulin, Cardizem)? @ -Insulin drip Were any procedures done? @ -No Diagnosis/symptom? @ -Acute DKA Acute, or Chronic, or Acute on Chronic? @ -Acute Uncomplicated (without systemic symptoms) or Complicated (systemic symptoms)? @ -Complicated Side effects of treatment? @ -No Exacerbation, Progression, or Severe Exacerbation? @ -No Poses a threat to life or bodily function? How? (Chest pain, USA, VT, pneumonia, PE, COPD, DKA, ARF, appy, cholecystitis, CVA, Diverticulitis, Homicidal, Suicidal, threat to staff... and all critical care pts) @ -Yes this patient has critically elevated glucose levels - Lab Data Result diagrams: 12/31/23 06:02 12/31/23 06:02 Lab Results 12/28/23 12/28/23 12/28/23 Range/Units 01:48 01:58 01:58 WBC 9.3 (3.8-10.6) k/uL RBC 4.84 (4.30-5.90) m/uL Hgb 13.9 (13.0-17.5) gm/dL Hct 42.9 (39.0-53.0) % MCV 88.7 (80.0-100.0) fL MCH 28.6 (25.0-35.0) pg MCHC 32.3 (31.0-37.0) g/dL RDW 12.9 (11.5-15.5) % Plt Count 227 (150-450) k/uL MPV 7.9 Neutrophils % 72 % Lymphocytes % 17 % Monocytes % 7 % Eosinophils % 2 % Basophils % 1 % Neutrophils # 6.7 (1.3-7.7) k/uL Lymphocytes # 1.5 (1.0-4.8) k/uL Monocytes # 0.6 (0-1.0) k/uL Eosinophils # 0.1 (0-0.7) k/uL Basophils # 0.1 (0-0.2) k/uL Sodium 121 L (137-145) mmol/L Potassium 4.4 (3.5-5.1) mmol/L Chloride 75 L (98-107) mmol/L Carbon Dioxide 19 L (22-30) mmol/L Anion Gap 27 mmol/L BUN 37 H (9-20) mg/dL Creatinine 1.53 H (0.66-1.25) mg/dL Est GFR (CKD-EPI)AfAm 51 (>60 ml/min/1.73 sqM) Est GFR (CKD-EPI)NonAf 44 (>60 ml/min/1.73 sqM) Glucose 828 H* (74-99) mg/dL POC Glucose (mg/dL) >600 H* (70-110) mg/dL POC Glu Telephone Solicitor ID Butch Eisenberg Calcium 9.2 (8.4-10.2) mg/dL Total Bilirubin 0.7 (0.2-1.3) mg/dL AST 21 (17-59) U/L ALT 17 (4-49) U/L Alkaline Phosphatase 110 (38-126) U/L Troponin I (0.000-0.034) ng/mL Total Protein 6.5 (6.3-8.2) g/dL Albumin 4.0 (3.5-5.0) g/dL Acetone, Qual Negative (Negative) 12/28/23 Range/Units 01:58 WBC (3.8-10.6) k/uL RBC (4.30-5.90) m/uL Hgb (13.0-17.5) gm/dL Hct (39.0-53.0) % MCV (80.0-100.0) fL MCH (25.0-35.0) pg MCHC (31.0-37.0) g/dL RDW (11.5-15.5) % Plt Count (150-450) k/uL MPV Neutrophils % % Lymphocytes % % Monocytes % % Eosinophils % % Basophils % % Neutrophils # (1.3-7.7) k/uL Lymphocytes # (1.0-4.8) k/uL Monocytes # (0-1.0) k/uL Eosinophils # (0-0.7) k/uL Basophils # (0-0.2) k/uL Sodium (137-145) mmol/L Potassium (3.5-5.1) mmol/L Chloride (98-107) mmol/L Carbon Dioxide (22-30) mmol/L Anion Gap mmol/L BUN (9-20) mg/dL Creatinine (0.66-1.25) mg/dL Est GFR (CKD-EPI)AfAm (>60 ml/min/1.73 sqM) Est GFR (CKD-EPI)NonAf (>60 ml/min/1.73 sqM) Glucose (74-99) mg/dL POC Glucose (mg/dL) (70-110) mg/dL POC Glu Telephone Solicitor ID Calcium (8.4-10.2) mg/dL Total Bilirubin (0.2-1.3) mg/dL AST (17-59) U/L ALT (4-49) U/L Alkaline Phosphatase (38-126) U/L Troponin I <0.012 (0.000-0.034) ng/mL Total Protein (6.3-8.2) g/dL Albumin (3.5-5.0) g/dL Acetone, Qual (Negative) Disposition Clinical Impression: DKA, type 2 Disposition: ADMITTED IP TO THIS [facility] Condition: Stable Is patient prescribed a controlled substance at d/c from ED?: No Time of Disposition: 04:32 Decision to Admit Reason: Admit from EC Decision Date: 12/28/23 Decision Time: 04:32
[2023-12-28 05:07] LABS: Glucose,Whole Blood >600 mg/dL (70-110)
[2023-12-28] MEDS: SODIUM CHLORIDE 0.9% 1,000 ML IV SCH (05:19)
[2023-12-28 05:24] LABS: Glucose,Whole Blood >600 mg/dL (70-110)
[2023-12-28] MEDS: INSULIN REGULAR 100 UNIT in SODIUM CHLORIDE 0.9% 100 ML IV SCH (05:25)
[2023-12-28 06:35] LABS: Glucose,Whole Blood 444 mg/dL (70-110)
[2023-12-28 07:41] LABS: Glucose,Whole Blood 528 mg/dL (70-110)
[2023-12-28 08:39] LABS: Glucose,Whole Blood 222 mg/dL (70-110)
[2023-12-28] MEDS: D5-0.45% NACL WITH KCL 20MEQ/L 1,000 ML IV SCH (08:46)
[2023-12-28 09:06] LABS: African American GFR (CKD) 54 (>60 ml/min/1.73 sqM); Anion Gap 13 mmol/L; Blood Urea Nitrogen 32 mg/dL (9-20); Carbon Dioxide 22 mmol/L (22-30); Chloride 98 mmol/L (98-107); Glucose 315 mg/dL (74-99); Non-African American GFR(CKD) 47 (>60 ml/min/1.73 sqM); Potassium 3.6 mmol/L (3.5-5.1); Sodium 133 mmol/L (137-145)
[2023-12-28 10:02] LABS: Glucose,Whole Blood 217 mg/dL (70-110)
[2023-12-28] MEDS: DONEPEZIL 5 MG TAB PO SCH (10:49)
[2023-12-28] MEDS: DULoxetine HCL 60 MG CAPSULE.DR PO SCH (10:52)
[2023-12-28] MEDS: PANTOPRAZOLE 40 MG TABLET PO SCH (10:52)
[2023-12-28 11:24] LABS: Glucose,Whole Blood 205 mg/dL (70-110)
[2023-12-28 12:59] LABS: Glucose,Whole Blood 185 mg/dL (70-110)
[2023-12-28 13:17] LABS: African American GFR (CKD) 57 (>60 ml/min/1.73 sqM); Anion Gap 12 mmol/L; Blood Urea Nitrogen 31 mg/dL (9-20); Carbon Dioxide 23 mmol/L (22-30); Chloride 97 mmol/L (98-107); Glucose 151 mg/dL (74-99); Non-African American GFR(CKD) 49 (>60 ml/min/1.73 sqM); Potassium 3.7 mmol/L (3.5-5.1); Sodium 132 mmol/L (137-145)
[2023-12-28] MEDS: GABAPENTIN 300 MG CAP PO SCH (14:38)
[2023-12-28 14:50] LABS: Glucose,Whole Blood 147 mg/dL (70-110)
--- NOTE | 2023-12-28 15:03 | P.HPIM ---
History of Present Illness H&P Date: 12/28/23 Chief Complaint: High blood sugar/altered mental status 73-year-old male with past medical history of dementia, diabetes who is insulin- dependent who presents the emergency department with high blood sugar. Patient normally wears a glucose monitor which is downloaded to his phone. states that they have had difficulty downloading his readings for the past several days so they have been unaware of what his sugars have been running. He does take postprandial and long-acting insulin. He did take 70 units of his long-acting tonight. The patient ambulated to the bathroom and was feeling dizzy. EMS was called to the house and found the patient to have an extremely high glucose level. Patient denies any recent changes in his medications. He is a very poor historian. He denies any pain. No vomiting. He does admit that he has been compliant. Blood work completed in ED upon arrival reveals a WBC of 9.3, hemoglobin of 13.9 and platelet count of 227, sodium 121, potassium 4.4, BUNs/creatinine of 37/1.53 and blood glucose of 823, troponin less than 0.012 Patient placed on IV insulin infusion and is being admitted for further treatmen t of DKA Review of Systems REVIEW OF SYSTEMS: CONSTITUTIONAL: No fever, no malaise, no fatigue. HEENT: No recent visual problems or hearing problems. Denied any sore throat. CARDIOVASCULAR: No chest pain, orthopnea, PND, no palpitations, no syncope. PULMONARY: No shortness of breath, no cough, no hemoptysis. GASTROINTESTINAL: No diarrhea, no nausea, no vomiting, no abdominal pain. NEUROLOGICAL: No headaches, no weakness, no numbness. HEMATOLOGICAL: Denies any bleeding or petechiae. GENITOURINARY: Denies any burning micturition, frequency, or urgency. MUSCULOSKELETAL/RHEUMATOLOGICAL: Denies any joint pain, swelling, or any muscle pain. ENDOCRINE: Denies any polyuria or polydipsia. The rest of the 14-point review of systems is negative. Past Medical History Past Medical History: Dementia, Diabetes Mellitus, Hypertension History of Any Multi-Drug Resistant Organisms: None Reported Past Surgical History: Joint Replacement Additional Past Surgical History / Comment(s): rt hip replacement 2012, bk lleft ampuatation Past Anesthesia/Blood Transfusion Reactions: No Reported Reaction Past Psychological History: No Psychological Hx Reported Smoking Status: Never smoker Past Alcohol Use History: None Reported Past Drug Use History: None Reported Medications and Allergies Home Medications Medication Instructions Recorded Confirmed Type DULoxetine HCL [Cymbalta] 60 mg PO BID 11/29/22 12/28/23 History Pantoprazole [Protonix] 40 mg PO DAILY 11/29/22 12/28/23 History Primidone [Mysoline] 100 mg PO HS 11/29/22 12/28/23 History Insulin Degludec [Tresiba 1 dose SQ DIRECTED 12/28/23 12/28/23 History Flextouch U-100 Pen] Pregabalin [Lyrica] 300 mg PO HS 12/28/23 12/28/23 History Tirzepatide [Mounjaro] 10 mg SQ WE 12/28/23 12/28/23 History amLODIPine [Norvasc] 10 mg PO DAILY 12/28/23 12/28/23 History lisinopriL [Prinivil] 20 mg PO DAILY 12/28/23 12/28/23 History metFORMIN HCL ER [Glucophage XR] 500 mg PO DAILY 12/28/23 12/28/23 History Allergies Allergy/AdvReac Type Severity Reaction Status Date / Time No Known Allergies Allergy Verified 12/28/23 10:05 Physical Exam Vitals: Vital Signs Temp Pulse Resp BP Pulse Ox 12/28/23 08:00 80 20 121/75 96 12/28/23 05:49 73 18 155/92 96 12/28/23 03:58 97.6 F 75 15 172/87 96 12/28/23 01:44 98.3 F 79 16 159/91 97 Intake and Output 12/27/23 12/28/23 12/28/23 22:59 06:59 14:59 Intake Total 12.095 Balance 12.095 Intake: Intake, IV Titration 12.095 Amount Insulin Regular 100 unit 12.095 In Sodium Chloride 0.9% 100 ml @ 0.1 UNITS/KG/HR 10.079 mls/hr IV .Q10H2M PENDING SALE TO [facility] Rx#:[id number] Other: Weight 99.79 kg General appearance: alert, in no apparent distress Head exam: Present: atraumatic, normocephalic, normal inspection Eye exam: Present: normal appearance, PERRL, EOMI. Absent: scleral icterus, conjunctival injection, periorbital swelling ENT exam: Present: normal exam, mucous membranes moist Neck exam: Present: normal inspection. Absent: tenderness, meningismus, lymphadenopathy Respiratory exam: Present: normal lung sounds bilaterally. Absent: respiratory distress, wheezes, rales, rhonchi, stridor Cardiovascular Exam: Present: regular rate, normal rhythm, normal heart sounds. Absent: systolic murmur, diastolic murmur, rubs, gallop, clicks GI/Abdominal exam: Present: soft, normal bowel sounds. Absent: distended, tenderness, guarding, rebound, rigid Extremities exam: Present: normal inspection, full ROM, normal capillary refill. Absent: tenderness, pedal edema, joint swelling, calf tenderness Back exam: Present: normal inspection Neurological exam: Present: alert, oriented X3, CN II-XII intact Psychiatric exam: Present: normal affect, normal mood Skin exam: Present: warm, dry, intact, normal color. Absent: rash Results CBC & Chem 7: 12/28/23 01:58 12/28/23 12:44 Labs: Abnormal Lab Results - Last 24 Hours (Table) 12/28/23 12/28/23 12/28/23 Range/Units 01:48 01:58 05:05 Sodium 121 L (137-145) mmol/L Chloride 75 L (98-107) mmol/L Carbon Dioxide 19 L (22-30) mmol/L BUN 37 H (9-20) mg/dL Creatinine 1.53 H (0.66-1.25) mg/dL Glucose 828 H* (74-99) mg/dL POC Glucose (mg/dL) >600 H* >600 H* (70-110) mg/dL 12/28/23 12/28/23 12/28/23 Range/Units 05:23 06:34 07:40 Sodium (137-145) mmol/L Chloride (98-107) mmol/L Carbon Dioxide (22-30) mmol/L BUN (9-20) mg/dL Creatinine (0.66-1.25) mg/dL Glucose (74-99) mg/dL POC Glucose (mg/dL) >600 H* 444 H 528 H* (70-110) mg/dL 12/28/23 12/28/23 Range/Units 08:06 08:38 Sodium 133 L (137-145) mmol/L Chloride (98-107) mmol/L Carbon Dioxide (22-30) mmol/L BUN 32 H (9-20) mg/dL Creatinine 1.47 H (0.66-1.25) mg/dL Glucose 315 H (74-99) mg/dL POC Glucose (mg/dL) 222 H (70-110) mg/dL Assessment and Plan Assessment: 1. Acute diabetic ketoacidosis -Patient will be admitted to selective care unit; continue with IV insulin infusion per DKA protocol -Currently on IV fluids in form of normal saline at rate of 125 cc an hour; recommend switching to dextrose containing fluids per protocol till Bicarb is within normal and anion gap has resolved -Will monitor renal function and electrolytes including calcium and phosphorus; supplement as needed -- Transition to home dose of long-acting insulin once anion gap has closed 2. Acute renal injury; BUN/creatinine elevated at 37/1.53; continue with IV fluids as indicated above; will monitor strict LEXIS's, daily weights, renal function electrolytes; avoid nephrotoxins and hypotension 3. Hyponatremia; sodium at 121; likely pseudohyponatremia resulting from marked hyperglycemia -Continue with IV fluids as indicated above; monitor electrolytes 4. Hypertension; lisinopril 20 mg daily which will be placed on hold given YINKA; will resume once acute renal injury resolves; we will continue with home dose of Norvasc 10 mg daily 5. Diabetic neuropathy; patient takes Lyrica 300 mg p.o. nightly; hold for now given mental status change 6. Dementia; will resume home dose of Aricept DVT prophylaxis; SCDs/subcu heparin CODE STATUS; full code
[2023-12-28 15:43] LABS: Glucose,Whole Blood 145 mg/dL (70-110)
[2023-12-28 16:45] LABS: Glucose,Whole Blood 192 mg/dL (70-110)
[2023-12-28 17:09] LABS: African American GFR (CKD) 67 (>60 ml/min/1.73 sqM); Anion Gap 10 mmol/L; Blood Urea Nitrogen 27 mg/dL (9-20); Calcium 9.1 mg/dL (8.4-10.2); Carbon Dioxide 24 mmol/L (22-30); Chloride 99 mmol/L (98-107); Glucose 132 mg/dL (74-99); Non-African American GFR(CKD) 58 (>60 ml/min/1.73 sqM); Potassium 3.7 mmol/L (3.5-5.1); Sodium 133 mmol/L (137-145)
[2023-12-28 17:36] LABS: Glucose,Whole Blood 145 mg/dL (70-110)
[2023-12-28] MEDS: INSULIN ASPART (NovoLOG) 100 UNIT/ML VIAL SQ SCH ×2 (17:41)
[2023-12-28] MEDS: INSULIN NPH 100 UNIT/ML 10 ML VIAL SQ ONE (17:41)
[2023-12-28] MEDS: INSULIN DETEMIR (LEVEMIR) 100 UNIT/ML SYR SQ SCH (17:45)
[2023-12-28 18:36] LABS: Glucose,Whole Blood 185 mg/dL (70-110)
[2023-12-28 20:01] VITALS: RESP 16
[2023-12-28 20:11] LABS: Glucose,Whole Blood 265 mg/dL (70-110)
[2023-12-28] MEDS: PRIMIDONE 50 MG TAB PO SCH (20:41)
[2023-12-28] MEDS: LATANOPROST 0.005% OPHTH DROPS 2.5 ML BTL BOTH EYES SCH (20:42)
[2023-12-28] MEDS ORDERED: INSULIN DETEMIR (LEVEMIR) 100 UNIT/ML SYR SQ SCH (21:00)
[2023-12-29 02:07] LABS: Glucose,Whole Blood 191 mg/dL (70-110)
[2023-12-29 03:18] LABS: African American GFR (CKD) 61 (>60 ml/min/1.73 sqM); Anion Gap 9 mmol/L; Blood Urea Nitrogen 25 mg/dL (9-20); Carbon Dioxide 25 mmol/L (22-30); Chloride 101 mmol/L (98-107); Non-African American GFR(CKD) 53 (>60 ml/min/1.73 sqM); Phosphorus 3.5 mg/dL (2.5-4.5); Potassium 4.1 mmol/L (3.5-5.1); Sodium 135 mmol/L (137-145)
[2023-12-29 06:13] LABS: Glucose,Whole Blood 238 mg/dL (70-110)
[2023-12-29 12:08] LABS: Glucose,Whole Blood 281 mg/dL (70-110)
[2023-12-29] MEDS: AMPICILLIN-SULBACTAM 3 GM in SODIUM CHLORIDE 0.9% 100 ML IVPB SCH (12:39)
[2023-12-29 13:17] LABS: Appearance,Urine Clear (Clear); Bilirubin,Urine Negative (Negative); Blood,Urine Trace (Negative); Color,Urine Yellow; Glucose,Urine (UA) 4+ (Negative); Hyaline Casts,Urine 6 /lpf (0-2); Ketones,Urine Negative (Negative); Leukocyte Esterase,Urine Negative (Negative); Mucus,Urine Rare /hpf; Nitrite,Urine Negative (Negative); PH, Urine 5.5 (5.0-8.0); Protein,Urine 1+ (Negative); RBC,Urine 25 /hpf (0-5); Specific Gravity,Urine 1.024 (1.001-1.035); Squamous Epithelial Cell,Urine <1 /hpf (0-4); Urobilinogen,Urine <2.0 mg/dL (<2.0); WBC,Urine 6 /hpf (0-5)
--- NOTE | 2023-12-29 13:37 | P.PN ---
Subjective Progress Note Date: 12/29/23 73-year-old male with past medical history of dementia, diabetes who is insulin- dependent who presents the emergency department with high blood sugar. Patient normally wears a glucose monitor which is downloaded to his phone. states that they have had difficulty downloading his readings for the past several days so they have been unaware of what his sugars have been running. He does take postprandial and long-acting insulin. He did take 70 units of his long-acting tonight. The patient ambulated to the bathroom and was feeling dizzy. EMS was called to the house and found the patient to have an extremely high glucose level. Patient denies any recent changes in his medications. He is a very poor historian. He denies any pain. No vomiting. He does admit that he has been compliant. Blood work completed in ED upon arrival reveals a WBC of 9.3, hemoglobin of 13.9 and platelet count of 227, sodium 121, potassium 4.4, BUNs/creatinine of 37/1.53 and blood glucose of 823, troponin less than 0.012 Patient placed on IV insulin infusion and is being admitted for further treatment of DKA 12/28. Patient seen and examined. Laying comfortably in the bed. Patient has right foot wound which is not healing well REVIEW OF SYSTEMS: CONSTITUTIONAL: No fever, no malaise,. CARDIOVASCULAR: No chest pain, no palpitations, no syncope. PULMONARY: No shortness of breath, no cough, GASTROINTESTINAL: No diarrhea, no nausea, no vomiting, no abdominal pain. NEUROLOGICAL: No headaches, no weakness, PHYSICAL EXAMINATION: GENERAL: The patient is alert and oriented x3, not in any acute distress. Well developed, well nourished. HEENT: Pupils are round and equally reacting to light. EOMI. No scleral icterus. No conjunctival pallor. Normocephalic, atraumatic. No pharyngeal erythema. No thyromegaly. CARDIOVASCULAR: S1 and S2 present. No murmurs, rubs, or gallops. PULMONARY: Chest is clear to auscultation, no wheezing or crackles. ABDOMEN: Soft, nontender, nondistended, normoactive bowel sounds. No palpable organomegaly. MUSCULOSKELETAL: Left BKA EXTREMITIES: No cyanosis, clubbing, or pedal edema. Right heel wound NEUROLOGICAL: Gross neurological examination did not reveal any focal deficits. SKIN: No rashes. Assessment and plan DKA Acute kidney injury Hyponatremia Hypertension Diabetic neuropathy Right heel diabetic ulcer Monitor vital signs Monitor CBC Monitor CMP Continue telemetry monitoring Encourage use of incentive spirometer Monitor blood sugar levels Continue Levemir 30 units at night and sliding scale insulin. Continue IV fluids Continue wound care Start IV Unasyn Consult ID Labs and medication were reviewed.. Continue same treatment. Continue with symptomatic treatment. Resume home medication. Monitor labs and vitals. DVT and GI prophylaxis. Further recommendations as per clinical course of the patient Dictation was produced using [employer] dictation software. please excuse any grammatical, word or spelling errors. Objective - Vital Signs Vital signs: Vital Signs Temp 97.0 F L 12/29/23 08:51 Pulse 85 12/29/23 08:54 Resp 16 12/29/23 08:54 BP 110/70 12/29/23 08:51 Pulse Ox 95 12/29/23 08:51 FiO2 Intake & Output 12/28/23 12/29/23 12/29/23 18:59 06:59 18:59 Intake Total 90.207 10 Output Total 300 Balance -209.793 10 Weight 99.79 kg 81.5 kg Intake: IV 10 Invasive Line 1 10 Intake, IV Titration 90.207 Amount Insulin Regular 100 unit 90.207 In Sodium Chloride 0.9% 100 ml @ 0.1 UNITS/KG/HR 10.079 mls/hr IV .Q10H2M [facility] Rx#:[id number] Output: Urine 300 Other: Voiding Method Urinal External Catheter # Voids 1 - Labs CBC & Chem 7: 12/28/23 01:58 12/29/23 02:26 Labs: Abnormal Lab Results - Last 24 Hours (Table) 12/28/23 12/28/23 12/28/23 Range/Units 11:22 12:44 12:57 Sodium 132 L (137-145) mmol/L Chloride 97 L (98-107) mmol/L BUN 31 H (9-20) mg/dL Creatinine 1.42 H (0.66-1.25) mg/dL Glucose 151 H (74-99) mg/dL POC Glucose (mg/dL) 205 H 185 H (70-110) mg/dL 12/28/23 12/28/23 12/28/23 Range/Units 14:40 15:41 16:18 Sodium 133 L (137-145) mmol/L Chloride (98-107) mmol/L BUN 27 H (9-20) mg/dL Creatinine (0.66-1.25) mg/dL Glucose 132 H (74-99) mg/dL POC Glucose (mg/dL) 147 H 145 H (70-110) mg/dL 12/28/23 12/28/23 12/28/23 Range/Units 16:44 17:34 18:34 Sodium (137-145) mmol/L Chloride (98-107) mmol/L BUN (9-20) mg/dL Creatinine (0.66-1.25) mg/dL Glucose (74-99) mg/dL POC Glucose (mg/dL) 192 H 145 H 185 H (70-110) mg/dL 12/28/23 12/29/23 12/29/23 Range/Units 20:10 02:05 02:26 Sodium 135 L (137-145) mmol/L Chloride (98-107) mmol/L BUN 25 H (9-20) mg/dL Creatinine 1.34 H (0.66-1.25) mg/dL Glucose (74-99) mg/dL POC Glucose (mg/dL) 265 H 191 H (70-110) mg/dL 12/29/23 Range/Units 06:11 Sodium (137-145) mmol/L Chloride (98-107) mmol/L BUN (9-20) mg/dL Creatinine (0.66-1.25) mg/dL Glucose (74-99) mg/dL POC Glucose (mg/dL) 238 H (70-110) mg/dL
[2023-12-29 13:51] VITALS: BMI 27.3
[2023-12-29] MEDS ORDERED: ZINC OXIDE PASTE (Z-GUARD) 1 APPLIC TOPICAL PRN (14:32)
[2023-12-29 17:04] LABS: Glucose,Whole Blood 464 mg/dL (70-110)
[2023-12-29 21:10] LABS: Glucose,Whole Blood 412 mg/dL (70-110)
[2023-12-29 23:03] LABS: Glucose,Whole Blood 296 mg/dL (70-110)
[2023-12-30 02:00] LABS: Glucose,Whole Blood 301 mg/dL (70-110)
[2023-12-30 06:05] LABS: Glucose,Whole Blood 168 mg/dL (70-110)
--- NOTE | 2023-12-30 08:10 | P.CONS ---
History of Present Illness - Reason for Consult Consult date: 12/29/23 Right heel wound Requesting physician: Alberto Clemons - Chief Complaint Elevated blood sugar x few days - History of Present Illness Patient is a 73-year-old male with a past medical history significant for diabetes mellitus hypertension dementia, presented to the hospital for evaluation of elevated blood sugar in this patient being treated with the long- acting and postprandial insulin patient apparently went to the bathroom felt dizzy EMS was called and and the patient was noticed to have elevated blood sugar for the patient has been brought into the hospital patient denies having any fever or any chills patient denies having any headache no chest pain shortn ess of breath or cough no nausea no vomiting no abdominal pain no diarrhea patient did have a wound to the right heel area probably this consultation patient had very clear when did the wound to the heel area has started patient denies being in a bedbound state mention pretty mobile did not recall using any tight fitting shoes or any local treatment been provided to wait patient denies significant pain because of his underlying diabetic neuropathy he did have minimal swelling some redness and minimal drainage but no foul-smelling Review of Systems Positive point and negatives has been mentioned in the HPI, complete review of systems was performed and all other systems are negative Past Medical History Past Medical History: Dementia, Diabetes Mellitus, Hypertension History of Any Multi-Drug Resistant Organisms: None Reported Past Surgical History: Joint Replacement Additional Past Surgical History / Comment(s): rt hip replacement 2012, bk lleft ampuatation Past Anesthesia/Blood Transfusion Reactions: No Reported Reaction Past Psychological History: No Psychological Hx Reported Smoking Status: Never smoker Past Alcohol Use History: None Reported Past Drug Use History: None Reported Medications and Allergies Home Medications Medication Instructions Recorded Confirmed Type DULoxetine HCL [Cymbalta] 60 mg PO BID 11/29/22 12/28/23 History Pantoprazole [Protonix] 40 mg PO DAILY 11/29/22 12/28/23 History Primidone [Mysoline] 100 mg PO HS 11/29/22 12/28/23 History Insulin Degludec [Tresiba 1 dose SQ DIRECTED 12/28/23 12/28/23 History Flextouch U-100 Pen] Pregabalin [Lyrica] 300 mg PO HS 12/28/23 12/28/23 History Tirzepatide [Mounjaro] 10 mg SQ WE 12/28/23 12/28/23 History amLODIPine [Norvasc] 10 mg PO DAILY 12/28/23 12/28/23 History lisinopriL [Prinivil] 20 mg PO DAILY 12/28/23 12/28/23 History metFORMIN HCL ER [Glucophage XR] 500 mg PO DAILY 12/28/23 12/28/23 History Allergies Allergy/AdvReac Type Severity Reaction Status Date / Time No Known Allergies Allergy Verified 12/28/23 10:05 Physical Exam Vitals: Vital Signs Temp Pulse Pulse Resp BP BP Pulse Ox 12/29/23 08:54 85 16 12/29/23 08:51 97.0 F L 85 16 110/70 95 12/29/23 03:46 97.5 F L 81 16 113/70 96 12/28/23 23:45 97.5 F L 79 16 169/84 94 L 12/28/23 20:00 97.6 F 78 16 180/87 96 12/28/23 16:00 72 18 161/80 96 12/28/23 15:36 18 12/28/23 13:40 73 18 132/79 95 12/28/23 10:50 73 18 134/76 95 Intake and Output 12/28/23 12/29/23 12/29/23 22:59 06:59 14:59 Intake Total 7.055 10 Output Total 300 Balance -292.945 10 Intake: IV 10 Invasive Line 1 10 Intake, IV Titration 7.055 Amount Insulin Regular 100 unit 7.055 In Sodium Chloride 0.9% 100 ml @ 0.1 UNITS/KG/HR 10.079 mls/hr IV .Q10H2M [facility] Rx#:[id number] Output: Urine 300 Other: Voiding Method Urinal Urinal External Catheter # Voids 1 Weight 99.79 kg 81.5 kg GENERAL DESCRIPTION: Elderly male lying in bed, no distress. No tachypnea or accessory muscle of respiration use. HEENT: Shows Pallor , no scleral icterus. Oral mucous membrane is dry. No pharyngeal erythema or thrush NECK: Trachea central, no thyromegaly. LUNGS: Unlabored breathing. Clear to auscultation anteriorly. No wheeze or crackle. HEART: S1, S2, regular rate and rhythm. No loud murmur ABDOMEN: Soft, no tenderness , guarding or rigidity, no organomegaly EXTREMITIES: Right heel with a stage II pressure ulcer with some surrounding swelling redness minimal drainage SKIN: No rash, no masses palpable. NEUROLOGICAL: The patient is awake, alert, oriented x3, mood and affect normal. Results CBC & Chem 7: 12/28/23 01:58 12/29/23 02:26 Labs: Abnormal Lab Results - Last 24 Hours (Table) 12/28/23 12/28/23 12/28/23 Range/Units 11:22 12:44 12:57 Sodium 132 L (137-145) mmol/L Chloride 97 L (98-107) mmol/L BUN 31 H (9-20) mg/dL Creatinine 1.42 H (0.66-1.25) mg/dL Glucose 151 H (74-99) mg/dL POC Glucose (mg/dL) 205 H 185 H (70-110) mg/dL 12/28/23 12/28/23 12/28/23 Range/Units 14:40 15:41 16:18 Sodium 133 L (137-145) mmol/L Chloride (98-107) mmol/L BUN 27 H (9-20) mg/dL Creatinine (0.66-1.25) mg/dL Glucose 132 H (74-99) mg/dL POC Glucose (mg/dL) 147 H 145 H (70-110) mg/dL 12/28/23 12/28/23 12/28/23 Range/Units 16:44 17:34 18:34 Sodium (137-145) mmol/L Chloride (98-107) mmol/L BUN (9-20) mg/dL Creatinine (0.66-1.25) mg/dL Glucose (74-99) mg/dL POC Glucose (mg/dL) 192 H 145 H 185 H (70-110) mg/dL 12/28/23 12/29/23 12/29/23 Range/Units 20:10 02:05 02:26 Sodium 135 L (137-145) mmol/L Chloride (98-107) mmol/L BUN 25 H (9-20) mg/dL Creatinine 1.34 H (0.66-1.25) mg/dL Glucose (74-99) mg/dL POC Glucose (mg/dL) 265 H 191 H (70-110) mg/dL 12/29/23 Range/Units 06:11 Sodium (137-145) mmol/L Chloride (98-107) mmol/L BUN (9-20) mg/dL Creatinine (0.66-1.25) mg/dL Glucose (74-99) mg/dL POC Glucose (mg/dL) 238 H (70-110) mg/dL Assessment and Plan (1) Diabetic foot ulcer Current Visit: Yes Status: Acute Code(s): E11.621 - TYPE 2 DIABETES MELLITUS WITH FOOT ULCER; L97.509 - NON-PRESSURE CHRONIC ULCER OTH PRT UNSP FOOT W UNSP SEVERITY SNOMED Code(s): 091634345 (2) Cellulitis of right foot Current Visit: Yes Status: Acute Code(s): L03.115 - CELLULITIS OF RIGHT LOWER LIMB SNOMED Code(s): 66857663290760871 Plan: 1patient presented to hospital with elevated blood sugar and this patient also have a right heel stage II pressure ulcer with some erythema and drainage concerning for cellulitis may be contributing to this elevated blood sugar. 2we will apply Aquacel silver dressing to the heel and keep the area of the pressure. 3we will empirically start the patient on Unasyn and see clinical response. We will follow on clinical condition and cultures to further adjust medication if needed Thank you for this consultation we will follow the patient along with you Dictation was produced using [employer] dictation software. please excuse any grammatical, word or spelling errors. Time with Patient: Greater than 30
[2023-12-30 11:34] LABS: Glucose,Whole Blood 273 mg/dL (70-110)
[2023-12-30 11:48] LABS: ALT 13 U/L (4-49); AST 19 U/L (17-59); African American GFR (CKD) 53 (>60 ml/min/1.73 sqM); Albumin 3.2 g/dL (3.5-5.0); Alkaline Phosphatase 83 U/L (38-126); Anion Gap 7 mmol/L; Blood Urea Nitrogen 28 mg/dL (9-20); Calcium 8.5 mg/dL (8.4-10.2); Carbon Dioxide 25 mmol/L (22-30); Chloride 102 mmol/L (98-107); Glucose 210 mg/dL (74-99); Non-African American GFR(CKD) 46 (>60 ml/min/1.73 sqM); Sodium 134 mmol/L (137-145); Total Bilirubin 0.4 mg/dL (0.2-1.3); Total Protein 5.9 g/dL (6.3-8.2)
[2023-12-30] MEDS: INSULIN ASPART (NovoLOG) 100 UNIT/ML VIAL SQ SCH (12:05)
--- NOTE | 2023-12-30 12:24 | P.PN ---
Subjective Progress Note Date: 12/30/23 Principal diagnosis: Reason for follow-up is right heel diabetic foot ulcer and cellulitis Patient is a 73-year-old male with a past medical history significant for diabetes mellitus hypertension dementia, presented to the hospital for evaluation of elevated blood sugar, patient also noticed to have right heel wound and cellulitis prompting this consultation. On today's evaluation that is 12/30/2023, Patient is afebrile this morning patient denies having any chest pain shortness of breath or cough, the patient is breathing comfortably and currently on room air, patient denies any abdominal pain no diarrhea no nausea no vomiting, patient denies pain to the right heel wound. Patient creat is 1.49 no CBC was done today Objective - Vital Signs Vital signs: Vital Signs Temp 97.0 F L 12/30/23 11:29 Pulse 75 12/30/23 11:29 Resp 16 12/30/23 11:29 BP 151/80 12/30/23 11:29 Pulse Ox 97 12/30/23 11:29 FiO2 Intake & Output 12/29/23 12/30/23 12/30/23 18:59 06:59 18:59 Intake Total 10 240 240 Output Total 550 350 Balance 10 -310 -110 Weight 81.5 kg 85.5 kg Intake: IV 10 Invasive Line 1 10 Oral 240 240 Output: Urine 550 350 Other: Voiding Method External Catheter Urinal External Catheter # Bowel Movements 1 - Exam GENERAL DESCRIPTION: An elderly male lying in bed in no distress RESPIRATORY SYSTEM: Unlabored breathing , decreased breath sounds at bases HEART: S1 S2 regular rate and rhythm , ABDOMEN: Soft , no tenderness EXTREMITIES: Right heel wound is currently dressed no drainage - Labs CBC & Chem 7: 12/28/23 01:58 12/30/23 10:40 Labs: Abnormal Lab Results - Last 24 Hours (Table) 12/29/23 12/29/23 12/29/23 Range/Units 12:50 17:03 21:08 Sodium (137-145) mmol/L BUN (9-20) mg/dL Creatinine (0.66-1.25) mg/dL Glucose (74-99) mg/dL POC Glucose (mg/dL) 464 H 412 H (70-110) mg/dL Total Protein (6.3-8.2) g/dL Albumin (3.5-5.0) g/dL Urine Protein 1+ H (Negative) Urine Glucose (UA) 4+ H (Negative) Urine Blood Trace H (Negative) Urine RBC 25 H (0-5) /hpf Urine WBC 6 H (0-5) /hpf Hyaline Casts 6 H (0-2) /lpf Urine Mucus Rare H (None) /hpf 12/29/23 12/30/23 12/30/23 Range/Units 23:00 01:59 06:04 Sodium (137-145) mmol/L BUN (9-20) mg/dL Creatinine (0.66-1.25) mg/dL Glucose (74-99) mg/dL POC Glucose (mg/dL) 296 H 301 H 168 H (70-110) mg/dL Total Protein (6.3-8.2) g/dL Albumin (3.5-5.0) g/dL Urine Protein (Negative) Urine Glucose (UA) (Negative) Urine Blood (Negative) Urine RBC (0-5) /hpf Urine WBC (0-5) /hpf Hyaline Casts (0-2) /lpf Urine Mucus (None) /hpf 12/30/23 12/30/23 Range/Units 10:40 11:33 Sodium 134 L (137-145) mmol/L BUN 28 H (9-20) mg/dL Creatinine 1.49 H (0.66-1.25) mg/dL Glucose 210 H (74-99) mg/dL POC Glucose (mg/dL) 273 H (70-110) mg/dL Total Protein 5.9 L (6.3-8.2) g/dL Albumin 3.2 L (3.5-5.0) g/dL Urine Protein (Negative) Urine Glucose (UA) (Negative) Urine Blood (Negative) Urine RBC (0-5) /hpf Urine WBC (0-5) /hpf Hyaline Casts (0-2) /lpf Urine Mucus (None) /hpf Assessment and Plan (1) Diabetic foot ulcer Current Visit: Yes Status: Acute Code(s): E11.621 - TYPE 2 DIABETES MELLITUS WITH FOOT ULCER; L97.509 - NON-PRESSURE CHRONIC ULCER OTH PRT UNSP FOOT W UNSP SEVERITY SNOMED Code(s): 251563607 (2) Cellulitis of right foot Current Visit: Yes Status: Acute Code(s): L03.115 - CELLULITIS OF RIGHT LOWER LIMB SNOMED Code(s): 89906556688055016 Plan: 1patient presented to hospital with elevated blood sugar and this patient also have a right heel stage II pressure ulcer with some erythema and drainage concerning for cellulitis may be contributing to this elevated blood sugar. 2we will apply Aquacel silver dressing to the heel and keep the area of the pressure. 3patient to continue with the Unasyn however keeping in mind the patient has b een insisting on going home we will consider short course of oral Augmentin on discharge Dictation was produced using [employer] dictation software. please excuse any grammatical, word or spelling errors.
--- NOTE | 2023-12-30 12:33 | P.PN ---
Subjective Progress Note Date: 12/30/23 73-year-old male with past medical history of dementia, diabetes who is insulin- dependent who presents the emergency department with high blood sugar. Patient normally wears a glucose monitor which is downloaded to his phone. states that they have had difficulty downloading his readings for the past several days so they have been unaware of what his sugars have been running. He does take postprandial and long-acting insulin. He did take 70 units of his long-acting tonight. The patient ambulated to the bathroom and was feeling dizzy. EMS was called to the house and found the patient to have an extremely high glucose level. Patient denies any recent changes in his medications. He is a very poor historian. He denies any pain. No vomiting. He does admit that he has been compliant. Blood work completed in ED upon arrival reveals a WBC of 9.3, hemoglobin of 13.9 and platelet count of 227, sodium 121, potassium 4.4, BUNs/creatinine of 37/1.53 and blood glucose of 823, troponin less than 0.012 Patient placed on IV insulin infusion and is being admitted for further treatment of DKA 12/28. Patient seen and examined. Laying comfortably in the bed. Patient has right foot wound which is not healing well 12/29. Patient seen and examined. Blood sugars were elevated, adjusted NovoLog to 12 units 3 times daily. States he feels better REVIEW OF SYSTEMS: CONSTITUTIONAL: No fever, no malaise,. CARDIOVASCULAR: No chest pain, no palpitations, no syncope. PULMONARY: No shortness of breath, no cough, GASTROINTESTINAL: No diarrhea, no nausea, no vomiting, no abdominal pain. NEUROLOGICAL: No headaches, no weakness, PHYSICAL EXAMINATION: GENERAL: The patient is alert and oriented x3, not in any acute distress. Well developed, well nourished. HEENT: Pupils are round and equally reacting to light. EOMI. No scleral icterus. No conjunctival pallor. Normocephalic, atraumatic. No pharyngeal erythema. No thyromegaly. CARDIOVASCULAR: S1 and S2 present. No murmurs, rubs, or gallops. PULMONARY: Chest is clear to auscultation, no wheezing or crackles. ABDOMEN: Soft, nontender, nondistended, normoactive bowel sounds. No palpable organomegaly. MUSCULOSKELETAL: Left BKA EXTREMITIES: No cyanosis, clubbing, or pedal edema. Right heel dressing Seen NEUROLOGICAL: Gross neurological examination did not reveal any focal deficits. SKIN: No rashes. Assessment and plan DKA Acute kidney injury Hyponatremia Hypertension Diabetic neuropathy Right heel diabetic ulcer Monitor vital signs Monitor CBC Monitor CMP Continue telemetry monitoring Encourage use of incentive spirometer Monitor blood sugar levels Continue Levemir 30 units at night and sliding scale insulin, NovoLog 12 units 3 times daily. DC fluids Continue wound care Continue Unasyn ID following Labs and medication were reviewed.. Continue same treatment. Continue with symptomatic treatment. Resume home medication. Monitor labs and vitals. DVT and GI prophylaxis. Further recommendations as per clinical course of the patient Dictation was produced using [employer] dictation software. please excuse any grammatical, word or spelling errors. Objective - Vital Signs Vital signs: Vital Signs Temp 97.8 F 12/30/23 08:56 Pulse 93 12/30/23 09:06 Resp 16 12/30/23 09:06 BP 164/81 12/30/23 08:56 Pulse Ox 97 12/30/23 08:56 FiO2 Intake & Output 12/29/23 12/30/23 12/30/23 18:59 06:59 18:59 Intake Total 10 240 Output Total 550 Balance 10 -310 Weight 81.5 kg 85.5 kg Intake: IV 10 Invasive Line 1 10 Oral 240 Output: Urine 550 Other: Voiding Method External Catheter Urinal External Catheter # Bowel Movements 1 - Labs CBC & Chem 7: 12/28/23 01:58 12/30/23 10:40 Labs: Abnormal Lab Results - Last 24 Hours (Table) 12/29/23 12/29/23 12/29/23 Range/Units 12:07 12:50 17:03 POC Glucose (mg/dL) 281 H 464 H (70-110) mg/dL Urine Protein 1+ H (Negative) Urine Glucose (UA) 4+ H (Negative) Urine Blood Trace H (Negative) Urine RBC 25 H (0-5) /hpf Urine WBC 6 H (0-5) /hpf Hyaline Casts 6 H (0-2) /lpf Urine Mucus Rare H (None) /hpf 12/29/23 12/29/23 12/30/23 Range/Units 21:08 23:00 01:59 POC Glucose (mg/dL) 412 H 296 H 301 H (70-110) mg/dL Urine Protein (Negative) Urine Glucose (UA) (Negative) Urine Blood (Negative) Urine RBC (0-5) /hpf Urine WBC (0-5) /hpf Hyaline Casts (0-2) /lpf Urine Mucus (None) /hpf 12/30/23 Range/Units 06:04 POC Glucose (mg/dL) 168 H (70-110) mg/dL Urine Protein (Negative) Urine Glucose (UA) (Negative) Urine Blood (Negative) Urine RBC (0-5) /hpf Urine WBC (0-5) /hpf Hyaline Casts (0-2) /lpf Urine Mucus (None) /hpf
[2023-12-30 16:34] LABS: Glucose,Whole Blood 284 mg/dL (70-110)
[2023-12-30 19:54] LABS: Glucose,Whole Blood 217 mg/dL (70-110)
[2023-12-31 02:21] LABS: Glucose,Whole Blood 262 mg/dL (70-110)
[2023-12-31 06:03] LABS: Glucose,Whole Blood 179 mg/dL (70-110)
[2023-12-31 06:42] LABS: Basophils % (A) 0 %; Eosinophils # (A) 0.2 k/uL (0-0.7); Eosinophils % (A) 2 %; HCT 41.5 % (39.0-53.0); HGB 13.4 gm/dL (13.0-17.5); Lymphocytes # (A) 1.7 k/uL (1.0-4.8); Lymphocytes % (A) 18 %; MCH 28.6 pg (25.0-35.0); MCHC 32.3 g/dL (31.0-37.0); MCV 88.4 fL (80.0-100.0); Monocytes # (A) 0.7 k/uL (0-1.0); Monocytes % (A) 8 %; Neutrophils # (A) 6.2 k/uL (1.3-7.7); Neutrophils % (A) 68 %; Platelet Count 171 k/uL (150-450); RDW 13.3 % (11.5-15.5)
[2023-12-31 06:52] LABS: ALT 12 U/L (4-49); AST 17 U/L (17-59); African American GFR (CKD) 61 (>60 ml/min/1.73 sqM); Albumin 3.1 g/dL (3.5-5.0); Alkaline Phosphatase 74 U/L (38-126); Anion Gap 9 mmol/L; Blood Urea Nitrogen 22 mg/dL (9-20); Calcium 8.3 mg/dL (8.4-10.2); Carbon Dioxide 23 mmol/L (22-30); Chloride 104 mmol/L (98-107); Glucose 192 mg/dL (74-99); Non-African American GFR(CKD) 53 (>60 ml/min/1.73 sqM); Potassium 3.6 mmol/L (3.5-5.1); Sodium 136 mmol/L (137-145); Total Bilirubin 0.5 mg/dL (0.2-1.3); Total Protein 5.7 g/dL (6.3-8.2)
[2023-12-31] MEDS: amLODIPine 10 MG TAB PO SCH (07:50)
[2023-12-31 11:25] LABS: Glucose,Whole Blood 252 mg/dL (70-110)
--- NOTE | 2023-12-31 12:45 | P.DS ---
Providers Date of admission: 12/28/23 04:32 Expected date of discharge: 12/31/23 Attending physician: Miguel Knowles Consults: 12/29/23 10:29 Consult Physician Routine Consulting Provider: Freddie Drew Consult Reason/Comments: Right heel wound Do you want consulting provider notified?: Yes Primary care physician: Stated None Hospital Course: Discharge diagnoses; DKA Acute kidney injury Hyponatremia Hypertension Diabetic neuropathy Right heel diabetic ulcer Hospital course; 73-year-old male with past medical history of dementia, diabetes who is insulin- dependent who presents the emergency department with high blood sugar. Patient normally wears a glucose monitor which is downloaded to his phone. states that they have had difficulty downloading his readings for the past several days so they have been unaware of what his sugars have been running. He does take postprandial and long-acting insulin. He did take 70 units of his long-acting tonight. The patient ambulated to the bathroom and was feeling dizzy. EMS was called to the house and found the patient to have an extremely high glucose level. Patient denies any recent changes in his medications. He is a very poor historian. He denies any pain. No vomiting. He does admit that he has been compliant. Blood work completed in ED upon arrival reveals a WBC of 9.3, hemoglobin of 13.9 and platelet count of 227, sodium 121, potassium 4.4, BUNs/creatinine of 37/1.53 and blood glucose of 823, troponin less than 0.012 Patient placed on IV insulin infusion and is being admitted for further treatment of DKA 12/28. Patient seen and examined. Laying comfortably in the bed. Patient has right foot wound which is not healing well 12/29. Patient seen and examined. Blood sugars were elevated, adjusted NovoLog to 12 units 3 times daily. States he feels better 12/30. Patient seen and examined. Being discharged on oral Augmentin for 1 week. Being resumed on home insulin regimen PHYSICAL EXAMINATION: GENERAL: The patient is alert and oriented x3, not in any acute distress. Well developed, well nourished. HEENT: Pupils are round and equally reacting to light. EOMI. No scleral icterus. No conjunctival pallor. Normocephalic, atraumatic. No pharyngeal erythema. No thyromegaly. CARDIOVASCULAR: S1 and S2 present. No murmurs, rubs, or gallops. PULMONARY: Chest is clear to auscultation, no wheezing or crackles. ABDOMEN: Soft, nontender, nondistended, normoactive bowel sounds. No palpable organomegaly. MUSCULOSKELETAL: Left BKA EXTREMITIES: No cyanosis, clubbing, or pedal edema. Right heel dressing Seen NEUROLOGICAL: Gross neurological examination did not reveal any focal deficits. SKIN: No rashes. Dictation was produced using [employer] dictation software. please excuse any grammatical, word or spelling errors. Patient Condition at Discharge: Stable Plan - Discharge Summary Discharge Rx Participant: No New Discharge Prescriptions: New Amoxic-Pot Clav 875-125Mg [Augmentin 875-125] 1 tab PO Q12HR 7 Days #14 tab Continue Primidone [Mysoline] 100 mg PO HS Pantoprazole [Protonix] 40 mg PO DAILY amLODIPine [Norvasc] 10 mg PO DAILY Pregabalin [Lyrica] 300 mg PO HS Tirzepatide [Mounjaro] 10 mg SQ WE DULoxetine HCL [Cymbalta] 60 mg PO BID lisinopriL [Prinivil] 20 mg PO DAILY metFORMIN HCL ER [Glucophage XR] 500 mg PO DAILY Insulin Degludec [Tresiba Flextouch U-100 Pen] 1 dose SQ DIRECTED Discharge Medication List DULoxetine HCL [Cymbalta] 60 mg PO BID 11/29/22 [History] Pantoprazole [Protonix] 40 mg PO DAILY 11/29/22 [History] Primidone [Mysoline] 100 mg PO HS 11/29/22 [History] Insulin Degludec [Tresiba Flextouch U-100 Pen] 1 dose SQ DIRECTED 12/28/23 [History] Pregabalin [Lyrica] 300 mg PO HS 12/28/23 [History] Tirzepatide [Mounjaro] 10 mg SQ WE 12/28/23 [History] amLODIPine [Norvasc] 10 mg PO DAILY 12/28/23 [History] lisinopriL [Prinivil] 20 mg PO DAILY 12/28/23 [History] metFORMIN HCL ER [Glucophage XR] 500 mg PO DAILY 12/28/23 [History] Amoxic-Pot Clav 875-125Mg [Augmentin 875-125] 1 tab PO Q12HR 7 Days #14 tab 12/31/23 [Rx] Follow up Appointment(s)/Referral(s): [facility] [NON-STAFF] - Jay Jackson MD [REFERRING] - 1-2 Days Discharge/Stand Alone Forms: Who Do I Call?, Assisted Living Facilities, Help In The Home, Personal Front Desk Specialist
[2023-12-31 15:27] VITALS: BP 153/76; PULSE 80; TEMP 97.8
[2023-12-31 17:02] LABS: Glucose,Whole Blood 256 mg/dL (70-110)
--- NOTE | 2023-12-31 18:29 | CDI ---
Documentation Clarification Form Date: 12/31/2023 05:37:27 PM From: Franchesca Werner RN, CCDS Phone: [phone] Admit Date: 12/28/2023 04:32:00 AM Patient Name: Hermann Smallwood Visit Number: [id number] Discharge Date: ATTENTION: The Clinical Documentation Specialists (CDI) and [facility] Coding Staff appreciate your assistance in clarifying documentation. Please respond to the clarification below the line at the bottom and electronically sign. The CDI & [facility] Coding staff will review the response and follow-up if needed. Please note: Queries are made part of the Legal Health Record. If you have any questions, please contact the author of this message via ITS. Doctor/Provider: Freddie Drew Cellulitis is documented the consult on 12/30/23 and the patient has a diabetic foot ulcer. Additional clarification regarding the type of cellulitis is requested. History/risk factors: Dementia, Diabetes Mellitus, Hypertension Clinical Indicators: 73-year-old male present to ED with glucose reading of 828.The did the wound to the heel area unclear when it started, no pain because of his underlying diabetic neuropathy. He did have minimal swelling some redness and minimal drainage but no foul-smelling. VS: 159/91 79 16 98.2 97% RA Labs: WBC 9.3 NA+ 121 CL, CO2 19, BUN 37 CR 1.53 GFR 44, Acetone, Qual Negative Cellulitis of right foot is documented. Treatment: Cardiac/Telemetry Monitoring Unasyn 3GM IVPB Q 6 HRS .9NS 1,000 ML Bolus Monitor blood sugar per glucose protocol IV insulin infusion per DKA protocol Please clarify the etiology of the cellulitis, if known: [ x ] Cellulitis is a diabetic skin complication [ ] Cellulitis is not a diabetic skin complication [ ] Other, please specify: [ ] Unable to determine (Template Last Revised: April 2022) MTDD
[2023-12-31] MEDS ORDERED: AMPICILLIN-SULBACTAM 3 GM in SODIUM CHLORIDE 0.9% 100 ML IVPB SCH (20:00)
--- NOTE | 2024-01-02 08:46 | P.PN ---
Subjective Progress Note Date: 12/31/23 Principal diagnosis: Reason for follow-up is right heel diabetic foot ulcer and cellulitis Patient is a 73-year-old male with a past medical history significant for diabetes mellitus hypertension dementia, presented to the hospital for evaluation of elevated blood sugar, patient also noticed to have right heel wound and cellulitis prompting this consultation. On today's evaluation that is 12/31/2023,the patient remains to be afebrile he is breathing comfortably on room air in no distress the patient was slightly sleepy today and did not answer any question no vomiting diarrhea lethargy is reported by the nursing staff. The patient white count is 9.0, creatinine is 1.34 no cultures Objective - Vital Signs Vital signs: Vital Signs Temp 98.1 F 12/31/23 11:17 Pulse 83 12/31/23 11:17 Resp 16 12/31/23 11:17 BP 144/72 12/31/23 11:17 Pulse Ox 93 L 12/31/23 11:17 FiO2 Intake & Output 12/30/23 12/31/23 12/31/23 18:59 06:59 18:59 Intake Total 838 Output Total 350 1000 Balance 488 -1000 Intake: Oral 838 Output: Urine 350 1000 Other: Voiding Method External Catheter External Catheter External Catheter - Exam GENERAL DESCRIPTION: An elderly male lying in bed in no distress RESPIRATORY SYSTEM: Unlabored breathing , decreased breath sounds at bases HEART: S1 S2 regular rate and rhythm , ABDOMEN: Soft , no tenderness EXTREMITIES: Right heel wound is currently dressed no drainage - Labs CBC & Chem 7: 12/31/23 06:02 12/31/23 06:02 Labs: Abnormal Lab Results - Last 24 Hours (Table) 12/30/23 12/30/23 12/31/23 Range/Units 16:33 19:53 02:20 Sodium (137-145) mmol/L BUN (9-20) mg/dL Creatinine (0.66-1.25) mg/dL Glucose (74-99) mg/dL POC Glucose (mg/dL) 284 H 217 H 262 H (70-110) mg/dL Calcium (8.4-10.2) mg/dL Total Protein (6.3-8.2) g/dL Albumin (3.5-5.0) g/dL 12/31/23 12/31/23 12/31/23 Range/Units 06:01 06:02 11:23 Sodium 136 L (137-145) mmol/L BUN 22 H (9-20) mg/dL Creatinine 1.34 H (0.66-1.25) mg/dL Glucose 192 H (74-99) mg/dL POC Glucose (mg/dL) 179 H 252 H (70-110) mg/dL Calcium 8.3 L (8.4-10.2) mg/dL Total Protein 5.7 L (6.3-8.2) g/dL Albumin 3.1 L (3.5-5.0) g/dL Assessment and Plan (1) Diabetic foot ulcer Status: Acute Code(s): E11.621 - TYPE 2 DIABETES MELLITUS WITH FOOT ULCER; L 97.509 - NON-PRESSURE CHRONIC ULCER OTH PRT UNSP FOOT W UNSP SEVERITY SNOMED Code(s): 368052823 (2) Cellulitis of right foot Status: Acute Code(s): L03.115 - CELLULITIS OF RIGHT LOWER LIMB SNOMED Code(s): 74923754384956228 Plan: 1patient presented to hospital with elevated blood sugar and this patient also have a right heel stage II pressure ulcer with some erythema and drainage concerning for cellulitis may be contributing to this elevated blood sugar. 2patient to continue local wound care with Aquacel silver dressing to the heel and keep the area of the pressure and a short course of oral Augmentin on discharge discussed with the admitting physician working on discharge. Dictation was produced using [employer] dictation software. please excuse any grammatical, word or spelling errors. Time with Patient: Less than 30
== END 2023-12-31 19:00 | disposition home health service (06) | DRG 638 ==
LOC: EC 01:42 → 3SCARD 04:32
PROVIDERS: ADMIT Hospitalist; ATTEND Hospitalist
DX: E11.10 Type 2 diabetes mellitus with ketoacidosis without coma (principal); E87.1 Hypo-osmolality and hyponatremia; N17.9 Acute kidney failure, unspecified; L97.419 Non-pressure chronic ulcer of right heel and midfoot with unspecified severity; L03.115 Cellulitis of right lower limb; I10 Essential (primary) hypertension; F03.90 Unspecified dementia, unspecified severity, without behavioral disturbance, psychotic disturbance, mood disturbance, and anxiety; E11.628 Type 2 diabetes mellitus with other skin complications; L89.612 Pressure ulcer of right heel, stage 2; E11.40 Type 2 diabetes mellitus with diabetic neuropathy, unspecified; Z96.641 Presence of right artificial hip joint; E11.621 Type 2 diabetes mellitus with foot ulcer; Z79.4 Long term (current) use of insulin; Z79.84 Long term (current) use of oral hypoglycemic drugs; Z79.899 Other long term (current) drug therapy; Z89.512 Acquired absence of left leg below knee
CPT/HCPCS: 36415; 80048; 80051; 80053; 81001; 82009; 82565; 82947; 84100; 84484; 84520; 85025; 93005; 96360; 96361; 99291

== ENCOUNTER 2024-04-25 18:33 | Inpatient (IN) | payer MEDICARE ==
--- NOTE | 2024-04-25 18:55 | ED ---
General Adult HPI - General Chief complaint: Extremity Problem,Nontraumatic Stated complaint: Cellulitis Time Seen by Provider: 04/25/24 18:39 Source: patient, EMS, RN notes reviewed Mode of arrival: EMS Limitations: no limitations - History of Present Illness Initial comments: Patient is a 73-year-old male present to the emergency department with concerns for right leg infection. Patient has been dealing with this for a while and seems to be getting worse. Patient is having increased drainage and increased discomfort. There is redness noted. No fever. Patient has known diabetes and peripheral vascular disease. Patient has previous left leg amputation. - Related Data Home Medications Medication Instructions Recorded Confirmed DULoxetine HCL [Cymbalta] 60 mg PO BID 11/29/22 12/28/23 Pantoprazole [Protonix] 40 mg PO DAILY 11/29/22 12/28/23 Primidone [Mysoline] 100 mg PO HS 11/29/22 12/28/23 Insulin Degludec [Tresiba 1 dose SQ DIRECTED 12/28/23 12/28/23 Flextouch U-100 Pen] Pregabalin [Lyrica] 300 mg PO HS 12/28/23 12/28/23 Tirzepatide [Mounjaro] 10 mg SQ WE 12/28/23 12/28/23 amLODIPine [Norvasc] 10 mg PO DAILY 12/28/23 12/28/23 lisinopriL [Prinivil] 20 mg PO DAILY 12/28/23 12/28/23 metFORMIN HCL ER [Glucophage XR] 500 mg PO DAILY 12/28/23 12/28/23 Previous Rx's Medication Instructions Recorded Amoxic-Pot Clav 875-125Mg 1 tab PO Q12HR 7 Days #14 tab 12/31/23 [Augmentin 875-125] Allergies Allergy/AdvReac Type Severity Reaction Status Date / Time No Known Allergies Allergy Verified 04/25/24 18:44 Review of Systems ROS Statement: Those systems with pertinent positive or pertinent negative responses have been documented in the HPI. ROS Other: All systems not noted in ROS Statement are negative. Constitutional: Denies: fever ENT: Denies: throat pain Respiratory: Denies: cough Cardiovascular: Denies: chest pain Gastrointestinal: Denies: abdominal pain Skin: Reports: as per HPI Past Medical History Past Medical History: Dementia, Diabetes Mellitus, Hypertension History of Any Multi-Drug Resistant Organisms: None Reported Past Surgical History: Joint Replacement Additional Past Surgical History / Comment(s): rt hip replacement 2012, bk lleft ampuatation Past Anesthesia/Blood Transfusion Reactions: No Reported Reaction Past Psychological History: No Psychological Hx Reported Smoking Status: Never smoker Past Alcohol Use History: None Reported Past Drug Use History: None Reported General Exam Limitations: no limitations General appearance: alert Head exam: Present: normocephalic Eye exam: Present: normal appearance Neck exam: Present: normal inspection Respiratory exam: Present: normal lung sounds bilaterally Cardiovascular Exam: Present: regular rate, normal rhythm Expanded Peripheral pulses: 1+: Dorsalis Pedis (R) GI/Abdominal exam: Present: soft. Absent: tenderness Extremities exam: Present: other (Left BKA) Neurological exam: Present: alert Psychiatric exam: Present: normal affect, normal mood Skin exam: Present: other (Right lower leg from just below the knee to the toes with cellulitic changes and dampness and skin breakdown) Course Vital Signs 04/25/24 04/25/24 18:38 19:50 Temperature 98.1 F Pulse Rate 71 74 Respiratory 18 14 Rate Blood Pressure 112/60 133/77 O2 Sat by Pulse 97 96 Oximetry Medical Decision Making - Medical Decision Making Was pt. sent in by a medical professional or institution (, PA, FRUIT OR NUT FARMWORKER, urgent care, hospital, or long-term...) When possible be specific @ -No Did you speak to anyone other than the patient for history (EMS, parent, family, police, friend...)? What history was obtained from this source @ -No Did you review nursing and triage notes (agree or disagree)? Why? @ -I reviewed and agree with nursing and triage notes Were old charts reviewed (outside hosp., previous admission, EMS record, old EKG, old radiological studies, urgent care reports/EKG's, long-term records)? Report findings @ -No old charts were reviewed Differential Diagnosis (chest pain, altered mental status, abdominal pain women, abdominal pain men, vaginal bleeding, weakness, fever, dyspnea, syncope, headache, dizziness, GI bleed, back pain, seizure, CVA, palpatations, mental health, musculoskeletal)? @ -Differential Fever: Pneumonia, viral URI, endocarditis, myocarditis, pericarditis, otitis, sinusitis, peritonsillar Abscess, retropharyngeal Abscess, epiglottitis, peritonitis, appendicitis, Yanira cystitis, diverticulitis, hepatitis, colitis, UTI, PID, TOA, pyelonephritis, prostatitis, epididymitis, meningitis, encephalitis, pulmonary embolism, CVA, thyroid storm, pancreatitis, adrenal crisis, cavernous sinus thrombosis, this is not meant to be an all-inclusive list. EKG interpreted by me (3pts min.). @ -As above X-rays interpreted by me (1pt min.). @ -X-ray right foot and right tib-fib interpreted by myself are unremarkable without acute abnormality. Radiologist interpretation pending CT interpreted by me (1pt min.). @ -None done U/S interpreted by me (1pt. min.). @ -None done What testing was considered but not performed or refused? (CT, X-rays, U/S, labs)? Why? @ What meds were considered but not given or refused? Why? @ -None Did you discuss the management of the patient with other professionals (professionals i.e. , PA, FRUIT OR NUT FARMWORKER, lab, RT, psych nurse, social work associate, director of sales, teacher, transportation officer, rehabilitation case coordinator)? Give summary @ -[facility] practitioner Sommer Gold to admit covering hospital Was smoking cessation discussed for >3mins.? @ -No Was critical care preformed (if so, how long)? @ -No Were there social determinants of health that impacted care today? How? (Homel essness, low income, unemployed, alcoholism, drug addiction, transportation, low edu. Level, literacy, decrease access to med. care, long term, rehab)? @ -No Was there de-escalation of care discussed even if they declined (Discuss DNR or withdrawal of care, Hospice)? DNR status @ -No What co-morbidities impacted this encounter? (DM, HTN, Smoking, COPD, CAD, Cancer, CVA, ARF, Chemo, Hep., AIDS, mental health diagnosis, sleep apnea, morbid obesity)? @ -History of peripheral vascular disease and diabetes and leg wounds Was patient admitted / discharged? Hospital course, mention meds given and route , prescriptions, significant lab abnormalities, going to OR and other pertinent info. @ -Patient presents with cellulitis right lower leg. Patient will be admitted with IV antibiotics. Admission orders written. Undiagnosed new problem with uncertain prognosis? @ -No Drug Therapy requiring intensive monitoring for toxicity (Heparin, Nitro, Insulin, Cardizem)? @ -No Were any procedures done? @ -No Diagnosis/symptom? @ -Cellulitis right lower leg Acute, or Chronic, or Acute on Chronic? @ -Acute Uncomplicated (without systemic symptoms) or Complicated (systemic symptoms)? @ -Default Side effects of treatment? @ -No Exacerbation, Progression, or Severe Exacerbation? @ -No Poses a threat to life or bodily function? How? (Chest pain, [place], [place], pneumonia, PE, COPD, DKA, ARF, appy, cholecystitis, CVA, Diverticulitis, Homicidal, Suicidal, threat to staff... and all critical care pts) @ -Threat to limb - Lab Data Result diagrams: 04/25/24 19:54 04/25/24 19:54 Lab Results 04/25/24 04/25/24 04/25/24 Range/Units 19:54 19:54 19:54 WBC 12.3 H (3.8-10.6) k/uL RBC 3.92 L (4.30-5.90) m/uL Hgb 11.0 L (13.0-17.5) gm/dL Hct 33.6 L (39.0-53.0) % MCV 85.6 (80.0-100.0) fL MCH 28.0 (25.0-35.0) pg MCHC 32.7 (31.0-37.0) g/dL RDW 13.7 (11.5-15.5) % Plt Count 335 (150-450) k/uL MPV 7.1 Neutrophils % 76 % Lymphocytes % 13 % Monocytes % 5 % Eosinophils % 4 % Basophils % 0 % Neutrophils # 9.3 H (1.3-7.7) k/uL Lymphocytes # 1.6 (1.0-4.8) k/uL Monocytes # 0.6 (0-1.0) k/uL Eosinophils # 0.5 (0-0.7) k/uL Basophils # 0.0 (0-0.2) k/uL PT 11.2 (10.0-12.5) sec INR 1.0 (<1.2) APTT 23.6 (22.0-30.0) sec Sodium 139 (137-145) mmol/L Potassium 4.9 (3.5-5.1) mmol/L Chloride 109 H (98-107) mmol/L Carbon Dioxide 19 L (22-30) mmol/L Anion Gap 11 mmol/L BUN 34 H (9-20) mg/dL Creatinine 1.37 H (0.66-1.25) mg/dL Est GFR (CKD-EPI)AfAm 59 (>60 ml/min/1.73 sqM) Est GFR (CKD-EPI)NonAf 51 (>60 ml/min/1.73 sqM) Glucose 132 H (74-99) mg/dL Plasma Lactic Acid Keo (0.7-2.0) mmol/L Calcium 8.4 (8.4-10.2) mg/dL Total Bilirubin 0.4 (0.2-1.3) mg/dL AST 29 (17-59) U/L ALT 13 (4-49) U/L Alkaline Phosphatase 41 (38-126) U/L Total Protein 6.7 (6.3-8.2) g/dL Albumin 3.4 L (3.5-5.0) g/dL 04/25/24 Range/Units 19:54 WBC (3.8-10.6) k/uL RBC (4.30-5.90) m/uL Hgb (13.0-17.5) gm/dL Hct (39.0-53.0) % MCV (80.0-100.0) fL MCH (25.0-35.0) pg MCHC (31.0-37.0) g/dL RDW (11.5-15.5) % Plt Count (150-450) k/uL MPV Neutrophils % % Lymphocytes % % Monocytes % % Eosinophils % % Basophils % % Neutrophils # (1.3-7.7) k/uL Lymphocytes # (1.0-4.8) k/uL Monocytes # (0-1.0) k/uL Eosinophils # (0-0.7) k/uL Basophils # (0-0.2) k/uL PT (10.0-12.5) sec INR (<1.2) APTT (22.0-30.0) sec Sodium (137-145) mmol/L Potassium (3.5-5.1) mmol/L Chloride (98-107) mmol/L Carbon Dioxide (22-30) mmol/L Anion Gap mmol/L BUN (9-20) mg/dL Creatinine (0.66-1.25) mg/dL Est GFR (CKD-EPI)AfAm (>60 ml/min/1.73 sqM) Est GFR (CKD-EPI)NonAf (>60 ml/min/1.73 sqM) Glucose (74-99) mg/dL Plasma Lactic Acid Keo 1.4 (0.7-2.0) mmol/L Calcium (8.4-10.2) mg/dL Total Bilirubin (0.2-1.3) mg/dL AST (17-59) U/L ALT (4-49) U/L Alkaline Phosphatase (38-126) U/L Total Protein (6.3-8.2) g/dL Albumin (3.5-5.0) g/dL Disposition Clinical Impression: Cellulitis of right lower leg Disposition: ADMITTED IP TO THIS HOSP Is patient prescribed a controlled substance at d/c from ED?: No Referrals: None,Stated [Primary Care Provider] - 1-2 days Time of Disposition: 20:49
[2024-04-25 20:07] LABS: Basophils % (A) 0 %; Eosinophils # (A) 0.5 k/uL (0-0.7); Eosinophils % (A) 4 %; HCT 33.6 % (39.0-53.0); Lymphocytes # (A) 1.6 k/uL (1.0-4.8); Lymphocytes % (A) 13 %; MCHC 32.7 g/dL (31.0-37.0); MCV 85.6 fL (80.0-100.0); Mean Platelet Volume 7.1; Monocytes # (A) 0.6 k/uL (0-1.0); Monocytes % (A) 5 %; Neutrophils # (A) 9.3 k/uL (1.3-7.7); Neutrophils % (A) 76 %; Platelet Count 335 k/uL (150-450); RBC 3.92 m/uL (4.30-5.90); RDW 13.7 % (11.5-15.5); WBC 12.3 k/uL (3.8-10.6)
[2024-04-25] MEDS: MORPHINE SULFATE 4 MG/ML SYRINGE IVP STA (20:07)
[2024-04-25 20:16] LABS: Partial Thromboplastin Time 23.6 sec (22.0-30.0); Prothrombin Time 11.2 sec (10.0-12.5)
[2024-04-25] MEDS: CLINDAMYCIN 600 MG in DEXTROSE 5% IN WATER 50 ML IVPB ONE (20:19)
[2024-04-25 20:21] LABS: ALT 13 U/L (4-49); AST 29 U/L (17-59); African American GFR (CKD) 59 (>60 ml/min/1.73 sqM); Albumin 3.4 g/dL (3.5-5.0); Alkaline Phosphatase 41 U/L (38-126); Anion Gap 11 mmol/L; Blood Urea Nitrogen 34 mg/dL (9-20); Calcium 8.4 mg/dL (8.4-10.2); Carbon Dioxide 19 mmol/L (22-30); Chloride 109 mmol/L (98-107); Glucose 132 mg/dL (74-99); Non-African American GFR(CKD) 51 (>60 ml/min/1.73 sqM); Sodium 139 mmol/L (137-145); Total Bilirubin 0.4 mg/dL (0.2-1.3); Total Protein 6.7 g/dL (6.3-8.2)
[2024-04-25 20:34] LABS: Potassium 4.9 mmol/L (3.5-5.1)
[2024-04-25] MEDS: LACTATED RINGERS 1,000 ML IV SCH (20:40)
[2024-04-25] MEDS ORDERED: MORPHINE SULFATE 4 MG/ML SYRINGE IV PRN (20:49)
[2024-04-25] MEDS ORDERED: NALOXONE 0.4 MG/ML 1 ML VIAL IV PRN (20:49)
[2024-04-25] MEDS ORDERED: SODIUM CHLORIDE 0.9% 1,000 ML IV SCH (21:00)
--- NOTE | 2024-04-25 21:15 | XR ---
EXAMINATION TYPE: XR foot limited RT DATE OF EXAM: 04/25/2024 8:57 PM COMPARISON: None. CLINICAL INDICATION: Male, 73 years old with history of cellulitis, pain TECHNIQUE: 2 view(s) obtained. FINDINGS: No acute fracture or dislocation evident. Joint spaces appear preserved. Large Achilles tendon calcan eal heel spur is present. Small plantar heel spur is present. No suspicious cortical erosions evident. There may be some flattening of the plantar arch. IMPRESSION: 1. No suspicious change to suggest acute osteomyelitis. Three-phase bone scan can be performed for s ufficient clinical suspicion. [facility], , 04/25/2024 9:12 PM
--- NOTE | 2024-04-25 21:17 | XR ---
EXAMINATION TYPE: XR tibia fibula RT DATE OF EXAM: 04/25/2024 8:57 PM COMPARISON: None. CLINICAL INDICATION: Male, 73 years old with history of cellulitis, pain TECHNIQUE: 2 view(s) obtained. FINDINGS: No acute fracture or dislocation evident. Ankle mortise is intact. A secondary ossification center wi th smooth cortical margins of the medial malleolus. Large Achilles tendon calcaneal heel spur is pres ent. Anterior patellar spurring is present. No significant joint effusion is evident. Follow up exams can be performed as clinically indicated. IMPRESSION: 1. No suspicious changes for acute osteomyelitis. 2. No acute osseous abnormality. Follow-up can be performed as clinically indicated [facility], , 04/25/2024 9:15 PM
[2024-04-25] MEDS ORDERED: DEXTROSE 50% SYRINGE 50 ML IVP PRN ×2 (23:03)
[2024-04-25 23:29] LABS: Glucose,Whole Blood 92 mg/dL (70-110)
[2024-04-25] MEDS: QUEtiapine 25 MG TAB PO STA (23:59)
[2024-04-26] MEDS: PREGABALIN 100 MG CAP PO SCH (00:01)
[2024-04-26] MEDS: DULoxetine HCL 60 MG CAPSULE.DR PO SCH (00:13)
[2024-04-26] MEDS: PRIMIDONE 50 MG TAB PO SCH (00:15)
[2024-04-26] MEDS: CLINDAMYCIN 600 MG in DEXTROSE 5% IN WATER 50 ML IVPB SCH (05:01)
[2024-04-26 06:45] LABS: African American GFR (CKD) 54 (>60 ml/min/1.73 sqM); Anion Gap 9 mmol/L; Blood Urea Nitrogen 30 mg/dL (9-20); Calcium 8.7 mg/dL (8.4-10.2); Carbon Dioxide 24 mmol/L (22-30); Chloride 109 mmol/L (98-107); Glucose 57 mg/dL (74-99); Non-African American GFR(CKD) 47 (>60 ml/min/1.73 sqM); Potassium 4.6 mmol/L (3.5-5.1); Sodium 142 mmol/L (137-145)
[2024-04-26 06:58] LABS: Basophils % (A) 0 %; Eosinophils # (A) 0.3 k/uL (0-0.7); Eosinophils % (A) 3 %; HCT 33.7 % (39.0-53.0); Lymphocytes # (A) 1.3 k/uL (1.0-4.8); Lymphocytes % (A) 13 %; MCHC 32.5 g/dL (31.0-37.0); MCV 86.1 fL (80.0-100.0); Mean Platelet Volume 7.7; Monocytes # (A) 0.7 k/uL (0-1.0); Monocytes % (A) 7 %; Neutrophils # (A) 7.5 k/uL (1.3-7.7); Neutrophils % (A) 76 %; Platelet Count 319 k/uL (150-450); RBC 3.92 m/uL (4.30-5.90); RDW 13.9 % (11.5-15.5); WBC 9.9 k/uL (3.8-10.6)
[2024-04-26 08:10] LABS: Glucose,Whole Blood 57 mg/dL (70-110)
[2024-04-26 08:30] LABS: Glucose,Whole Blood 71 mg/dL (70-110)
[2024-04-26] MEDS: INSULIN ASPART (NovoLOG) 100 UNIT/ML VIAL SQ SCH (08:31)
[2024-04-26] MEDS: PANTOPRAZOLE 40 MG TABLET PO SCH (08:50)
[2024-04-26] MEDS: amLODIPine 10 MG TAB PO SCH (08:51)
[2024-04-26 12:35] LABS: Glucose,Whole Blood 161 mg/dL (70-110)
[2024-04-26] MEDS ORDERED: NYSTAT-TRIAMCIN 100,000-0.1 UNIT/GM-% CREAM 30 GM TUBE TOPICAL SCH (14:30)
--- NOTE | 2024-04-26 15:11 | P.HPIM ---
History of Present Illness H&P Date: 04/26/24 This is a 73-year-old male with medical history significant for diabetes mellitus type 2 and dementia, hypertension, peripheral vascular disease and prior left leg amputation. Patient came in with concerns for right leg infection ongoing for quite a while. He is having increased drainage with some redness noted. X-ray of the right foot reveals no suspicious changes suggest acute osteomyelitis bone scan recommended if clinical suspicion. Tib-fib x-ray reveals no acute osteomyelitis. Admission white blood cell count 12.3. BUN 44 creatinine 1.3 creatinine, sodium 139, glucose of 132. Appears to have a baseline creatinine of around 1.3 - 1.4. Patient reports no fever or chills. He has not had any shortness of breath or chest pain. No nausea vomiting or diarrhea. Had completed a round of oral antibiotics through his PCP without improvement. He is unsure which antibiotic he was prescribed. Patient was admitted to the hospital started empirically on IV clindamycin with consult placed to infectious disease. REVIEW OF SYSTEMS: CONSTITUTIONAL: No fever, no malaise, no fatigue. HEENT: No recent visual problems or hearing problems. Denied any sore throat. CARDIOVASCULAR: No chest pain, orthopnea, PND, no palpitations, no syncope. PULMONARY: No shortness of breath, no cough, no hemoptysis. GASTROINTESTINAL: No diarrhea, no nausea, no vomiting, no abdominal pain. NEUROLOGICAL: No headaches, no weakness, no numbness. HEMATOLOGICAL: Denies any bleeding or petechiae. GENITOURINARY: Denies any burning micturition, frequency, or urgency. MUSCULOSKELETAL/RHEUMATOLOGICAL: Denies any joint pain, swelling, or any muscle pain. ENDOCRINE: Denies any polyuria or polydipsia. The rest of the 14-point review of systems is negative. PHYSICAL EXAMINATION: GENERAL: The patient is alert and oriented x3, not in any acute distress. Well developed, well nourished. HEENT: Pupils are round and equally reacting to light. EOMI. No scleral icterus. No conjunctival pallor. Normocephalic, atraumatic. No pharyngeal erythema. No thyromegaly. CARDIOVASCULAR: S1 and S2 present. No murmurs, rubs, or gallops. PULMONARY: Chest is clear to auscultation, no wheezing or crackles. ABDOMEN: Soft, nontender, nondistended, normoactive bowel sounds. No palpable organomegaly. MUSCULOSKELETAL: No joint swelling or deformity. EXTREMITIES: No cyanosis, clubbing, or pedal edema. NEUROLOGICAL: Gross neurological examination did not reveal any focal deficits. SKIN: No rashes. Significant erythema from toes to knee on the right leg with dry crusting skin and weeping. Unstageable heel ulcer on the right with tissue necrosis Assessment and plan Right lower extremity cellulitis without sepsis present on admission Right heel diabetic ulcer unstageable present on admission Leukocytosis secondary to above Chronic kidney disease baseline creatinine around 1.3-1.4 Diabetes mellitus type 2 Hypertension Dementia maintained on donepezil Prior left leg amputation Peripheral vascular disease GI prophylaxis DVT prophylaxis Full Code Plan Patient has been started on IV antibiotics with IV cefazolin Infectious disease has been consulted and following Continue accuchecks ACHS and sliding scale insulin Wound cultures taken of the right heel diabetic foot ulcer Monitor electrolytes and renal function The impression and plan of care has been dictated by Nurse Nisa Prac titioner as directed. Dr. Logan MD I have performed a history and physical examination and medical decision making of this patient, discussed the same with the dictator, and agree with the dictators assessment and plan as written, documented as a scribe. Based on total visit time, I have performed more than 50% of this visit. Past Medical History Past Medical History: Dementia, Diabetes Mellitus, Hypertension History of Any Multi-Drug Resistant Organisms: None Reported Past Surgical History: Joint Replacement Additional Past Surgical History / Comment(s): rt hip replacement 2012, bk lleft ampuatation Past Anesthesia/Blood Transfusion Reactions: No Reported Reaction Past Psychological History: No Psychological Hx Reported Smoking Status: Never smoker Past Alcohol Use History: None Reported Past Drug Use History: None Reported Medications and Allergies Home Medications Medication Instructions Recorded Confirmed Type DULoxetine HCL [Cymbalta] 60 mg PO BID 11/29/22 04/26/24 History Pantoprazole [Protonix] 40 mg PO DAILY 11/29/22 04/26/24 History Primidone [Mysoline] 100 mg PO HS 11/29/22 04/26/24 History Insulin Degludec [Tresiba 50 units SQ DAILY 12/28/23 04/26/24 History Flextouch U-100 Pen] Pregabalin [Lyrica] 150 mg PO BID 12/28/23 04/26/24 History Tirzepatide [Mounjaro] 10 mg SQ WE 12/28/23 04/26/24 History amLODIPine [Norvasc] 10 mg PO DAILY 12/28/23 04/26/24 History lisinopriL [Prinivil] 20 mg PO DAILY 12/28/23 04/26/24 History metFORMIN HCL ER [Glucophage XR] 500 mg PO DAILY 12/28/23 04/26/24 History Donepezil [Aricept] 5 mg PO DAILY 04/26/24 04/26/24 History Rosuvastatin [Crestor] 10 mg PO HS 04/26/24 04/26/24 History Allergies Allergy/AdvReac Type Severity Reaction Status Date / Time No Known Allergies Allergy Verified 04/26/24 07:30 Physical Exam Vitals: Vital Signs Temp Pulse Pulse Resp BP BP Pulse Ox 04/26/24 08:00 97.5 F L 71 18 139/69 97 04/26/24 06:15 97.4 F L 73 16 118/59 98 04/26/24 04:32 76 18 113/59 95 04/26/24 02:17 84 16 125/67 98 04/25/24 23:33 78 18 123/90 99 04/25/24 19:50 74 14 133/77 96 04/25/24 18:38 98.1 F 71 18 112/60 97 Intake and Output 04/25/24 04/26/24 04/26/24 22:59 06:59 14:59 Other: Weight 102.058 kg Results CBC & Chem 7: 04/26/24 05:57 04/26/24 05:57 Labs: Abnormal Lab Results - Last 24 Hours (Table) 04/25/24 04/25/24 04/26/24 Range/Units 19:54 19:54 05:57 WBC 12.3 H (3.8-10.6) k/uL RBC 3.92 L 3.92 L (4.30-5.90) m/uL Hgb 11.0 L 11.0 L (13.0-17.5) gm/dL Hct 33.6 L 33.7 L (39.0-53.0) % Neutrophils # 9.3 H (1.3-7.7) k/uL Chloride 109 H (98-107) mmol/L Carbon Dioxide 19 L (22-30) mmol/L BUN 34 H (9-20) mg/dL Creatinine 1.37 H (0.66-1.25) mg/dL Glucose 132 H (74-99) mg/dL POC Glucose (mg/dL) (70-110) mg/dL Albumin 3.4 L (3.5-5.0) g/dL 04/26/24 04/26/24 Range/Units 05:57 08:07 WBC (3.8-10.6) k/uL RBC (4.30-5.90) m/uL Hgb (13.0-17.5) gm/dL Hct (39.0-53.0) % Neutrophils # (1.3-7.7) k/uL Chloride 109 H (98-107) mmol/L Carbon Dioxide (22-30) mmol/L BUN 30 H (9-20) mg/dL Creatinine 1.46 H (0.66-1.25) mg/dL Glucose 57 L (74-99) mg/dL POC Glucose (mg/dL) 57 L (70-110) mg/dL Albumin (3.5-5.0) g/dL Assessment and Plan Time with Patient: Less than 30
[2024-04-26] MEDS: TRIAMCINOLONE 0.1% CREAM 80 GM TUBE TOPICAL SCH (15:35)
[2024-04-26] MEDS: NYSTATIN 100,000UNIT/GM CREAM 30 GM TUBE TOPICAL SCH (15:35)
[2024-04-26 17:20] LABS: Glucose,Whole Blood 183 mg/dL (70-110)
[2024-04-26 20:13] LABS: Glucose,Whole Blood 230 mg/dL (70-110)
[2024-04-26] MEDS: ATORVASTATIN 20 MG TAB PO SCH (20:28)
[2024-04-26] MEDS: HEPARIN SODIUM,PORCINE 5,000 UNIT/ML 1 ML VIAL SQ SCH (20:28)
--- NOTE | 2024-04-26 21:11 | P.CONS ---
History of Present Illness - Reason for Consult Consult date: 04/26/24 Right leg cellulitis Requesting physician: Nolan Rivera - Chief Complaint Right leg swelling redness and drainage x days - History of Present Illness Patient is a 73-year-old male with a past medical history significant for diabetes mellitus hypertension renal disorder dementia previous history of diabetic foot infection with left below the knee amputation presenting to the hospital for evaluation of increasing pain and swelling redness of the right lower extremity has been dealing for a couple of days patient complaining of increasing drainage from the right leg as well as discomfort describing it to be more of a dull aching pain moderate intensity without any radiation also noted to have increased redness denies any falls spending drainage or high-grade fever did have some chills on presentation the hospital the patient was afebrile and no fever have been ordered subsequently patient was not tachycardic hypotensive or hypoxic patient did have white count of 12.3 with a left shift BUN and creatinine has been mildly elevated liver isms are normal did have x-ray of the foot and tibia-fibula did not show any fractures patient was started on clindam ycin infectious disease was consulted for further management of antibiotic therapy Review of Systems Positive point and negatives has been mentioned in the HPI, complete review of systems was performed and all other systems are negative Past Medical History Past Medical History: Dementia, Diabetes Mellitus, Hypertension, Renal Disease Additional Past Medical History / Comment(s): stage 3 History of Any Multi-Drug Resistant Organisms: None Reported Past Surgical History: Joint Replacement Additional Past Surgical History / Comment(s): rt hip replacement 2012, bka left ampuatation Past Anesthesia/Blood Transfusion Reactions: No Reported Reaction Past Psychological History: No Psychological Hx Reported Smoking Status: Never smoker Past Alcohol Use History: None Reported Past Drug Use History: None Reported Medications and Allergies Home Medications Medication Instructions Recorded Confirmed Type DULoxetine HCL [Cymbalta] 60 mg PO BID 11/29/22 04/26/24 History Pantoprazole [Protonix] 40 mg PO DAILY 11/29/22 04/26/24 History Primidone [Mysoline] 100 mg PO HS 11/29/22 04/26/24 History Insulin Degludec [Tresiba 50 units SQ DAILY 12/28/23 04/26/24 History Flextouch U-100 Pen] Pregabalin [Lyrica] 150 mg PO BID 12/28/23 04/26/24 History Tirzepatide [Mounjaro] 10 mg SQ WE 12/28/23 04/26/24 History amLODIPine [Norvasc] 10 mg PO DAILY 12/28/23 04/26/24 History lisinopriL [Prinivil] 20 mg PO DAILY 12/28/23 04/26/24 History metFORMIN HCL ER [Glucophage XR] 500 mg PO DAILY 12/28/23 04/26/24 History Donepezil [Aricept] 5 mg PO DAILY 04/26/24 04/26/24 History Rosuvastatin [Crestor] 10 mg PO HS 04/26/24 04/26/24 History Allergies Allergy/AdvReac Type Severity Reaction Status Date / Time No Known Allergies Allergy Verified 04/26/24 07:30 Physical Exam Vitals: Vital Signs Temp Pulse Pulse Resp BP BP Pulse Ox 04/26/24 08:00 97.5 F L 71 18 139/69 97 04/26/24 06:15 97.4 F L 73 16 118/59 98 04/26/24 04:32 76 18 113/59 95 04/26/24 02:17 84 16 125/67 98 04/25/24 23:33 78 18 123/90 99 04/25/24 19:50 74 14 133/77 96 04/25/24 18:38 98.1 F 71 18 112/60 97 Intake and Output 04/25/24 04/26/24 04/26/24 22:59 06:59 14:59 Other: Weight 102.058 kg 102.058 kg GENERAL DESCRIPTION: Elderly male up in the chair, no distress. No tachypnea or accessory muscle of respiration use. HEENT: Shows Pallor , no scleral icterus. Oral mucous membrane is dry. No pharyngeal erythema or thrush NECK: Trachea central, no thyromegaly. LUNGS: Unlabored breathing. Clear to auscultation anteriorly. No wheeze or crackle. HEART: S1, S2, regular rate and rhythm. No loud murmur ABDOMEN: Soft, no tenderness , guarding or rigidity, no organomegaly EXTREMITIES: Right lower extremity with swelling evidence of venous stasis ulcer some drainage and excoriation of the foot SKIN: No rash, no masses palpable. NEUROLOGICAL: The patient is awake, alert, oriented x3, mood and affect normal. Results CBC & Chem 7: 01/13/25 05:57 04/27/24 05:47 Labs: Abnormal Lab Results - Last 24 Hours (Table) 04/25/24 04/25/24 04/26/24 Range/Units 19:54 19:54 05:57 WBC 12.3 H (3.8-10.6) k/uL RBC 3.92 L 3.92 L (4.30-5.90) m/uL Hgb 11.0 L 11.0 L (13.0-17.5) gm/dL Hct 33.6 L 33.7 L (39.0-53.0) % Neutrophils # 9.3 H (1.3-7.7) k/uL Chloride 109 H (98-107) mmol/L Carbon Dioxide 19 L (22-30) mmol/L BUN 34 H (9-20) mg/dL Creatinine 1.37 H (0.66-1.25) mg/dL Glucose 132 H (74-99) mg/dL POC Glucose (mg/dL) (70-110) mg/dL Albumin 3.4 L (3.5-5.0) g/dL 04/26/24 04/26/24 Range/Units 05:57 08:07 WBC (3.8-10.6) k/uL RBC (4.30-5.90) m/uL Hgb (13.0-17.5) gm/dL Hct (39.0-53.0) % Neutrophils # (1.3-7.7) k/uL Chloride 109 H (98-107) mmol/L Carbon Dioxide (22-30) mmol/L BUN 30 H (9-20) mg/dL Creatinine 1.46 H (0.66-1.25) mg/dL Glucose 57 L (74-99) mg/dL POC Glucose (mg/dL) 57 L (70-110) mg/dL Albumin (3.5-5.0) g/dL Assessment and Plan (1) Leukocytosis Current Visit: Yes Status: Acute Code(s): D72.829 - ELEVATED WHITE BLOOD CELL COUNT, UNSPECIFIED SNOMED Code(s): 800738008 (2) Cellulitis of right lower leg Current Visit: Yes Status: Acute Code(s): L03.115 - CELLULITIS OF RIGHT LOWER LIMB SNOMED Code(s): 790511326 (3) Cellulitis of right foot Current Visit: No Status: Acute Code(s): L03.115 - CELLULITIS OF RIGHT LOWER LIMB SNOMED Code(s): 38661986318670997 (4) Diabetic foot ulcer Current Visit: No Status: Acute Code(s): E11.621 - TYPE 2 DIABETES MELLITUS WITH FOOT ULCER; L97.509 - NON-PRESSURE CHRONIC ULCER OTH PRT UNSP FOOT W UNSP S [place] SNOMED Code(s): 270912553 Plan: 1patient with right lower extremity swelling with concern for venous stasis ulcer as well as a dermatitis and possible component of second infected cellulitis likely from gram-positive skin arden 2-patient with mild renal insufficiency and high risk of nephrotoxicity from vancomycin 3-discontinue vancomycin 4-local wound care with the Mycolog cream to leave it alone for about an hour afterwards apply Guy wrap from just above the toe to below the knee explained to the nursing staff 5-we will start the patient cefazolin 2 g every 8 hours We will follow on clinical condition and cultures to further adjust medication if needed Thank you for this consultation we will follow the patient along with you Dictation was produced using [employer] dictation software. please excuse any grammatical, word or spelling errors. Time with Patient: Greater than 30
[2024-04-26] MEDS: traMADol 50 MG TAB PO PRN (21:47)
[2024-04-27] MEDS: HYDROcodone/APAP 5-325MG 1 EACH TAB PO PRN (05:37)
[2024-04-27 07:46] LABS: Glucose,Whole Blood 144 mg/dL (70-110)
[2024-04-27 09:04] LABS: Blood Urea Nitrogen 23.1 mg/dL (9.0-27.0); Calcium 7.9 mg/dL (8.7-10.3); Carbon Dioxide 21.6 mmol/L (21.6-31.8); Chloride 108 mmol/L (96-109); Glucose 133 mg/dL (70-110); Potassium 4.5 mmol/L (3.5-5.5); Sodium 140 mmol/L (135-145)
[2024-04-27] MEDS: DONEPEZIL 5 MG TAB PO SCH (09:44)
[2024-04-27 12:21] LABS: Glucose,Whole Blood 129 mg/dL (70-110)
[2024-04-27 17:15] LABS: Glucose,Whole Blood 211 mg/dL (70-110)
[2024-04-27] MEDS: AMPICILLIN-SULBACTAM 3 GM in SODIUM CHLORIDE 0.9% 100 ML IVPB SCH (17:19)
--- NOTE | 2024-04-27 19:52 | P.PN ---
Subjective Progress Note Date: 04/27/24 This is a 73-year-old male with medical history significant for diabetes mellitus type 2 and dementia, hypertension, peripheral vascular disease and prior left leg amputation. Patient came in with concerns for right leg infection ongoing for quite a while. He is having increased drainage with some redness noted. X-ray of the right foot reveals no suspicious changes suggest acute osteomyelitis bone scan recommended if clinical suspicion. Tib-fib x-ray reveals no acute osteomyelitis. Admission white blood cell count 12.3. BUN 44 creatinine 1.3 creatinine, sodium 139, glucose of 132. Appears to have a baseline creatinine of around 1.3 - 1.4. Patient reports no fever or chills. He has not had any shortness of breath or chest pain. No nausea vomiting or diarrhea. Had completed a round of oral antibiotics through his PCP without improvement. He is unsure which antibiotic he was prescribed. Patient was admitted to the hospital started empirically on IV clindamycin with consult placed to infectious disease. 04/27/2024 Patient is evaluated today in following up sitting in the chair. His right leg remains reddended and mildly edematous. UYEN wrap dressing in place. wound cultures preliminary showing enterococcus faecalis, enterobacter cloacae, alcaligen faecalis, staphylococcus aureus. Patient has been transitioned to IV unasyn. ID following closely. Otherwise Pain is being managed by oral medications. REVIEW OF SYSTEMS: CONSTITUTIONAL: No fever, no malaise, no fatigue. HEENT: No recent visual problems or hearing problems. Denied any sore throat. CARDIOVASCULAR: No chest pain, orthopnea, PND, no palpitations, no syncope. PULMONARY: No shortness of breath, no cough, no hemoptysis. GASTROINTESTINAL: No diarrhea, no nausea, no vomiting, no abdominal pain. NEUROLOGICAL: No headaches, no weakness, no numbness. PHYSICAL EXAMINATION: GENERAL: The patient is alert and oriented x3, not in any acute distress. Well developed, well nourished. HEENT: Pupils are round and equally reacting to light. EOMI. No scleral icterus. No conjunctival pallor. Normocephalic, atraumatic. No pharyngeal erythema. No thyromegaly. CARDIOVASCULAR: S1 and S2 present. No murmurs, rubs, or gallops. PULMONARY: Chest is clear to auscultation, no wheezing or crackles. ABDOMEN: Soft, nontender, nondistended, normoactive bowel sounds. No palpable organomegaly. MUSCULOSKELETAL: No joint swelling or deformity. EXTREMITIES: No cyanosis, clubbing, or pedal edema. NEUROLOGICAL: Gross neurological examination did not reveal any focal deficits. SKIN: No rashes. Significant erythema from toes to knee on the right leg with dry crusting skin and weeping. Unstageable heel ulcer on the right with tissue necrosis Assessment and plan Right lower extremity cellulitis without sepsis present on admission Right heel diabetic ulcer unstageable present on admission Leukocytosis secondary to above Chronic kidney disease baseline creatinine around 1.3-1.4 Diabetes mellitus type 2 Hypertension Dementia maintained on donepezil Prior left leg amputation Peripheral vascular disease GI prophylaxis DVT prophylaxis Full Code Plan Patient has been transitioned to IV unasyn. Infectious disease has been consulted and following Continue accuchecks ACHS and sliding scale insulin Wound cultures taken of the right heel diabetic foot ulcer Monitor electrolytes and renal function The impression and plan of care has been dictated by Asya De Dios, Nurse Practitioner as directed. Dr. Logan MD I have performed a history and physical examination and medical decision making of this patient, discussed the same with the dictator, and agree with the dictators assessment and plan as written, documented as a scribe. Based on total visit time, I have performed more than 50% of this visit. Objective - Vital Signs Vital signs: Vital Signs Temp 97.4 F L 04/27/24 12:11 Pulse 75 04/27/24 12:11 Resp 18 04/27/24 12:11 BP 122/58 04/27/24 12:11 Pulse Ox 97 04/27/24 12:11 FiO2 Intake & Output 04/27/24 04/27/24 04/28/24 06:59 18:59 06:59 Intake Total 50 Output Total 975 700 Balance -925 -700 Intake: Intake, IV Titration 50 Amount ceFAZolin 2 gm In Sodium 50 Chloride 0.9% 50 ml @ 100 mls/hr IVPB Q8HR [facility] Rx# :[id number] Output: Urine 975 700 Other: Voiding Method Urinal Urinal - Labs CBC & Chem 7: 04/26/24 05:57 04/27/24 05:47 Labs: Abnormal Lab Results - Last 24 Hours (Table) 04/26/24 04/27/24 04/27/24 Range/Units 20:09 05:47 07:39 BUN/Creatinine Ratio 21.00 H (12.00-20.00) Ratio Glucose 133 H (70-110) mg/dL POC Glucose (mg/dL) 230 H 144 H (70-110) mg/dL Calcium 7.9 L (8.7-10.3) mg/dL 04/27/24 04/27/24 Range/Units 12:16 17:11 BUN/Creatinine Ratio (12.00-20.00) Ratio Glucose (70-110) mg/dL POC Glucose (mg/dL) 129 H 211 H (70-110) mg/dL Calcium (8.7-10.3) mg/dL Microbiology - Last 24 Hours (Table) 04/25/24 20:29 Gram Stain - Preliminary Leg - Right Wound Culture - Preliminary Enterobacter cloacae Complex Alcaligen. faecalis Enterococcus faecalis Staphylococcus aureus 04/25/24 19:54 Blood Culture - Preliminary Blood Assessment and Plan Time with Patient: Less than 30
[2024-04-27 20:25] LABS: Glucose,Whole Blood 213 mg/dL (70-110)
[2024-04-27] MEDS: CALAMINE/ZINC OXIDE LOTION 177 ML BTL TOPICAL PRN (20:44)
[2024-04-28 07:36] LABS: Glucose,Whole Blood 152 mg/dL (70-110)
--- NOTE | 2024-04-28 07:58 | P.PN ---
Subjective Progress Note Date: 04/27/24 Principal diagnosis: Reason for follow up the right lower extremity ulcer and cellulitis Patient is a 73-year-old male with a past medical history significant for diabetes mellitus hypertension renal disorder dementia previous history of diabetic foot infection with left below the knee amputation presenting to the hospital for evaluation of increasing pain and swelling redness of the right lower extremity, patient has been diagnosed with a right lower extremity ulcer and cellulitis prompting this consultation. On today's evaluation that is 04/27/2023, Patient is afebrile this morning patient denies having any chest pain shortness of breath or cough, the patient is currently on room air, patient denies any abdominal pain no diarrhea no nausea no vomiting patient still complaining of discomfort to the right labial decrease intensity and more itching to the left BKA stump. Patient did have a creatinine 1.1 local culture growing multiple pathogen including Enterobacter Enterococcus faecalis Staph aureus Objective - Vital Signs Vital signs: Vital Signs Temp 97.4 F L 04/27/24 12:11 Pulse 75 04/27/24 12:11 Resp 18 04/27/24 12:11 BP 122/58 04/27/24 12:11 Pulse Ox 97 04/27/24 12:11 FiO2 Intake & Output 04/26/24 04/27/24 04/27/24 18:59 06:59 18:59 Intake Total 50 Output Total 975 Balance -925 Weight 102.058 kg Intake: Intake, IV Titration 50 Amount ceFAZolin 2 gm In Sodium 50 Chloride 0.9% 50 ml @ 100 mls/hr IVPB Q8HR [facility] Rx# :[id number] Output: Urine 975 Other: Voiding Method Urinal Urinal Urinal - Exam GENERAL DESCRIPTION: An elderly male up in the chair in no distress RESPIRATORY SYSTEM: Unlabored breathing , decreased breath sounds at bases HEART: S1 S2 regular rate and rhythm , ABDOMEN: Soft , no tenderness EXTREMITIES: Right lower extremity still having swelling redness below the foot area has dried out no drainage - Labs CBC & Chem 7: 04/26/24 05:57 04/27/24 05:47 Labs: Abnormal Lab Results - Last 24 Hours (Table) 04/26/24 04/26/24 04/27/24 Range/Units 17:14 20:09 05:47 BUN/Creatinine Ratio 21.00 H (12.00-20.00) Ratio Glucose 133 H (70-110) mg/dL POC Glucose (mg/dL) 183 H 230 H (70-110) mg/dL Calcium 7.9 L (8.7-10.3) mg/dL 04/27/24 04/27/24 Range/Units 07:39 12:16 BUN/Creatinine Ratio (12.00-20.00) Ratio Glucose (70-110) mg/dL POC Glucose (mg/dL) 144 H 129 H (70-110) mg/dL Calcium (8.7-10.3) mg/dL Microbiology - Last 24 Hours (Table) 04/25/24 20:29 Gram Stain - Preliminary Leg - Right Wound Culture - Preliminary Enterobacter cloacae Complex Alcaligen. faecalis Enterococcus faecalis Staphylococcus aureus 04/25/24 19:54 Blood Culture - Preliminary Blood Assessment and Plan (1) Leukocytosis Current Visit: Yes Status: Acute Code(s): D72.829 - ELEVATED WHITE BLOOD CELL COUNT, UNSPECIFIED SNOMED Code(s): 042042157 (2) Cellulitis of right lower leg Current Visit: Yes Status: Acute Code(s): L03.115 - CELLULITIS OF RIGHT LOWER LIMB SNOMED Code(s): 890719111 (3) Cellulitis of right foot Current Visit: No Status: Acute Code(s): L03.115 - CELLULITIS OF RIGHT LOWER LIMB SNOMED Code(s): 47981760997632633 (4) Diabetic foot ulcer Current Visit: No Status: Acute Code(s): E11.621 - TYPE 2 DIABETES MELLITUS WITH FOOT ULCER; L97.509 - NON-PRESSURE CHRONIC ULCER OTH PRT UNSP FOOT W UNSP SEVERITY SNOMED Code(s): 096518398 Plan: 1patient with right lower extremity swelling with concern for venous stasis ulcer as well as a dermatitis and possible component of second infected cellulitis likely from gram-positive skin arden 2-patient with mild renal insufficiency and high risk of nephrotoxicity from vancomycin, the patient kidney function subsequently improved 3--local wound care with the Mycolog cream to leave it alone for about an hour afterwards apply Guy wrap from just above the toe to below the knee explained to the nursing staff 4local culture grew multiple pathogen including Enterococcus and Enterobacter we will switch antibiotic to be Unasyn while waiting for the culture to finalize Dictation was produced using [employer] software. please excuse any grammatical, word or spelling errors. Time with Patient: Less than 30
[2024-04-28 12:06] LABS: Glucose,Whole Blood 272 mg/dL (70-110)
[2024-04-28 12:50] VITALS: BP 142/63; PULSE 84; RESP 16; TEMP 97.8
--- NOTE | 2024-05-02 18:15 | P.DS ---
Providers Date of admission: 04/25/24 20:50 Attending physician: Miguel Knowles Consults: 04/25/24 20:49 Consult Physician Routine Consulting Provider: Freddie Drew Consult Reason/Comments: cellulitis Do you want consulting provider notified?: Yes Primary care physician: Stated None Hospital Course: Final Diagnosis Right lower extremity cellulitis without sepsis present on admission Right heel diabetic ulcer unstageable present on admission Leukocytosis secondary to above Chronic kidney disease baseline creatinine around 1.3-1.4 Diabetes mellitus type 2 Hypertension Dementia maintained on donepezil Prior left leg amputation Peripheral vascular disease Discharge Disposition Patient is stable for discharge home. Has been cleared for discharge home by infectious disease services. Will complete course of antibiotics with augmentin and ciprofloxacin twice daily for the next 10 days. Patient is also given nystatin/triamcinolone cream to apply to the left leg. Hospital Course This is a 73-year-old male with medical history significant for diabetes mellitus type 2 and dementia, hypertension, peripheral vascular disease and prior left leg amputation. Patient came in with concerns for right leg infection ongoing for quite a while. He is having increased drainage with some redness noted. X-ray of the right foot reveals no suspicious changes suggest acute osteomyelitis bone scan recommended if clinical suspicion. Tib-fib x-ray reveals no acute osteomyelitis. Admission white blood cell count 12.3. BUN 44 creatinine 1.3 creatinine, sodium 139, glucose of 132. Appears to have a baseline creatinine of around 1.3 - 1.4. Patient reports no fever or chills. He has not had any shortness of breath or chest pain. No nausea vomiting or diarrhea. Had completed a round of oral antibiotics through his PCP without improvement. He is unsure which antibiotic he was prescribed. Patient was admitted to the hospital started empirically on IV clindamycin with consult placed to infectious disease. Had positive wound cultures showing enterobacter cloacae, alcaligen faecalis, enterococcus faecalis, and staphylococcus aureus. He was discharged home on course of oral augmentin and close follow up with infectious disease and wound care services. White blood cell count down to 9.9, renal function improved with BUN 23.1, creatinine 1.1. Please see medication reconciliation for a list of current medications. Thank you for allowing us to participate in the care of this patient. The impression and plan of care has been dictated by Asya De Dios, Nurse Practitioner as directed. Dr. Logan MD I have performed a history and physical examination and medical decision making of this patient, discussed the same with the dictator, and agree with the dictators assessment and plan as written, documented as a scribe. Based on total visit time, I have performed more than 50% of this visit. Patient Condition at Discharge: Stable Plan - Discharge Summary Discharge Rx Participant: No New Discharge Prescriptions: New Amoxic-Pot Clav 875-125Mg [Augmentin 875-125] 1 tab PO BID 10 Days #20 tab Calamine/Zinc Oxide Lotion [Calamine Lotion] 1 applic TOPICAL TID PRN each PRN Reason: Skin Irritation Triamcinolone 0.1% Cream [Kenalog 0.1% Cream] 1 applic TOPICAL BID #3 each Nystatin 100,000Unit/gm Cream [Mycostatin Cream] 1 applic TOPICAL BID #3 each Ciprofloxacin HCl [Cipro] 500 mg PO BID 10 Days #20 tab Continue Primidone [Mysoline] 100 mg PO HS Pantoprazole [Protonix] 40 mg PO DAILY amLODIPine [Norvasc] 10 mg PO DAILY Pregabalin [Lyrica] 150 mg PO BID Tirzepatide [Mounjaro] 10 mg SQ WE DULoxetine HCL [Cymbalta] 60 mg PO BID lisinopriL [Prinivil] 20 mg PO DAILY metFORMIN HCL ER [Glucophage XR] 500 mg PO DAILY Insulin Degludec [Tresiba Flextouch U-100 Pen] 50 units SQ DAILY Donepezil [Aricept] 5 mg PO DAILY Rosuvastatin [Crestor] 10 mg PO HS Discharge Medication List DULoxetine HCL [Cymbalta] 60 mg PO BID 11/29/22 [History] Pantoprazole [Protonix] 40 mg PO DAILY 11/29/22 [History] Primidone [Mysoline] 100 mg PO HS 11/29/22 [History] Insulin Degludec [Tresiba Flextouch U-100 Pen] 50 units SQ DAILY 12/28/23 [History] Pregabalin [Lyrica] 150 mg PO BID 12/28/23 [History] Tirzepatide [Mounjaro] 10 mg SQ WE 12/28/23 [History] amLODIPine [Norvasc] 10 mg PO DAILY 12/28/23 [History] lisinopriL [Prinivil] 20 mg PO DAILY 12/28/23 [History] metFORMIN HCL ER [Glucophage XR] 500 mg PO DAILY 12/28/23 [History] Donepezil [Aricept] 5 mg PO DAILY 04/26/24 [History] Rosuvastatin [Crestor] 10 mg PO HS 04/26/24 [History] Amoxic-Pot Clav 875-125Mg [Augmentin 875-125] 1 tab PO BID 10 Days #20 tab 04/28/24 [Rx] Calamine/Zinc Oxide Lotion [Calamine Lotion] 1 applic TOPICAL TID PRN each 04/28/24 [Rx] Ciprofloxacin HCl [Cipro] 500 mg PO BID 10 Days #20 tab 04/28/24 [Rx] Nystatin 100,000Unit/gm Cream [Mycostatin Cream] 1 applic TOPICAL BID #3 each 04/28/24 [Rx] Triamcinolone 0.1% Cream [Kenalog 0.1% Cream] 1 applic TOPICAL BID #3 each 04/28/24 [Rx] Follow up Appointment(s)/Referral(s): None,Stated [Primary Care Provider] - 1-2 days [facility] [NON-STAFF] - 1 Week Freddie Drew MD [STAFF PHYSICIAN] - 05/10/24 2:45 pm Jay Jackson MD [REFERRING] - 1-2 Days (The office was not available please call and make follow up appointment.) Ambulatory/Diagnostic Orders: Basic Metabolic Panel [LAB.AMB] Time Frame: 3 Days, Location: None Selected Activity/Diet/Wound Care/Special Instructions: Apply the nystatin and kenalog cream together twice daily until follow up with Dr Drew Continue oral antibiotics Cipro and augmentin twice daily for next 10 days Discharge Disposition: HOME WITH HOME HEALTH SERVICES
== END 2024-04-28 17:57 | disposition home health service (06) | DRG 638 ==
LOC: EC 18:33 → 5NMEDONC 20:50
PROVIDERS: ADMIT Hospitalist; ATTEND Hospitalist
DX: E11.621 Type 2 diabetes mellitus with foot ulcer (principal); L03.115 Cellulitis of right lower limb; L97.418 Non-pressure chronic ulcer of right heel and midfoot with other specified severity; E11.51 Type 2 diabetes mellitus with diabetic peripheral angiopathy without gangrene; F03.90 Unspecified dementia, unspecified severity, without behavioral disturbance, psychotic disturbance, mood disturbance, and anxiety; I83.015 Varicose veins of right lower extremity with ulcer other part of foot; I12.9 Hypertensive chronic kidney disease with stage 1 through stage 4 chronic kidney disease, or unspecified chronic kidney disease; E11.22 Type 2 diabetes mellitus with diabetic chronic kidney disease; N18.9 Chronic kidney disease, unspecified; Z96.641 Presence of right artificial hip joint; Z79.899 Other long term (current) drug therapy; Z79.4 Long term (current) use of insulin; Z79.84 Long term (current) use of oral hypoglycemic drugs; Z89.512 Acquired absence of left leg below knee
CPT/HCPCS: 36415; 80048; 80053; 83605; 85025; 85610; 85730; 87040; 87070; 87077; 87186; 87205; 96361; 96365; 96366; 96375; 99285

== ENCOUNTER → 2024-09-27 | Outpatient (CLI) | payer MEDICARE ==
--- NOTE | 2024-09-27 14:46 | US ---
EXAMINATION TYPE: US arterial LE single level DATE OF EXAM: 09/27/2024 2:22 PM COMPARISONS: None. CLINICAL INDICATION: Male, 74 years old with history of L89.613 PRESSURE ULCER OF RIGHT HEEL, STAGE 3 ; Left below knee amputee. Right heel wound x few months. TECHNIQUE: Systolic pressures were taken of the upper and lower extremity arteries with ankle-brachia l indices and toe brachial indices calculated bilaterally. History of: Smoker: No Hypertension: Yes Diabetic: Yes Hyperlipidemia: n/a TIA/CVA: No Previous Vascular Surgery: No CAD: No DC: No Vascular Ulcers: Right Claudication: No Gangrene: No FINDINGS: Doppler Waveforms: Right: Monophasic within the dorsalis pedis and digital artery. Biphasic waveforms within the poplite al and posterior tibial arteries. Left: Pressure Gradients: Brachial Artery systolic pressure: Right: 121 Left: 126 Posterior Tibial artery systolic pressure: Right: 143 Left: N/A Dorsalis Pedis artery systolic pressure: Right: 139 Left: N/A Toe artery systolic pressure: Right: 96 Left: N/A Ankle-Brachial Indices: Right: 1.1 Left: N/A Toe Brachial Indices: Right: 0.8 Left: N/A (Normal > 0.6; Mild 0.35 - 0.59, Moderate 0.12 - 0.34, Severe <0.12) IMPRESSION: Right lower extremity without significant flow-limiting stenosis. [facility], , 09/27/2024 2:44 PM
== END | disposition home or self-care (01) ==
LOC: RADUSWWP 13:32
PROVIDERS: ATTEND Family Medicine
DX: L89.613 Pressure ulcer of right heel, stage 3 (principal); E11.621 Type 2 diabetes mellitus with foot ulcer; E11.59 Type 2 diabetes mellitus with other circulatory complications; I10 Essential (primary) hypertension; E11.69 Type 2 diabetes mellitus with other specified complication; E78.5 Hyperlipidemia, unspecified; F03.90 Unspecified dementia, unspecified severity, without behavioral disturbance, psychotic disturbance, mood disturbance, and anxiety; Z89.512 Acquired absence of left leg below knee
CPT/HCPCS: 93922

== ENCOUNTER 2024-11-05 16:33 | Emergency (ER) | payer MEDICARE ==
[2024-11-05 16:40] VITALS: RESP 20; TEMP 98.5
--- NOTE | 2024-11-05 16:49 | ED ---
General Adult HPI - General Chief complaint: Fall Stated complaint: Fall Time Seen by Provider: 11/05/24 16:35 Source: patient, family, EMS, RN notes reviewed, old records reviewed Mode of arrival: EMS Limitations: no limitations - History of Present Illness Initial comments: 74-year-old male presenting status post mechanical fall with possible head inj ury. Patient tripped while walking with his walker. Patient is on Eliquis. Patient himself denies head injury but family states that they believe he did hit his head. There was no external signs of trauma noted by paramedics. Patient was transported for evaluation. He was a code coag activation in the emergency department. The patient himself has no complaints. He does have a baseline dementia. - Related Data Home Medications Medication Instructions Recorded Confirmed DULoxetine HCL [Cymbalta] 60 mg PO BID 11/29/22 08/17/24 amLODIPine [Norvasc] 10 mg PO HS 12/28/23 08/17/24 metFORMIN HCL ER [Glucophage XR] 1,000 mg PO BID 12/28/23 08/17/24 Atorvastatin [Lipitor] 20 mg PO DAILY 08/17/24 08/17/24 Clopidogrel [Plavix] 75 mg PO DAILY 08/17/24 08/17/24 Dapagliflozin Propanediol [Farxiga] 5 mg PO DAILY 08/17/24 08/17/24 Donepezil HCl [Aricept] 10 mg PO DAILY 08/17/24 08/17/24 Furosemide [Lasix] 40 mg PO DAILY 08/17/24 08/17/24 Insulin Glargine,Hum.rec.anlog 62 units SQ HS 08/17/24 08/17/24 [Lantus Solostar Pen] Insulin Lispro [humaLOG Kwikpen] 14 unit SQ AC-TID 08/17/24 08/17/24 Insulin Lispro [humaLOG Kwikpen] See Protocol SQ AC-TID 08/17/24 08/17/24 lisinopriL [Zestril] 5 mg PO DAILY 08/17/24 08/17/24 Previous Rx's Medication Instructions Recorded Ciprofloxacin HCl [Cipro] 250 mg PO BID 10 Days #20 tab 08/23/24 Apixaban [Eliquis Starter Pack 0 mg PO DIRECTED 30 Days #1 09/07/24 (for VTE)] packet Allergies Allergy/AdvReac Type Severity Reaction Status Date / Time No Known Allergies Allergy Verified 11/05/24 16:38 Review of Systems ROS Statement: Those systems with pertinent positive or pertinent negative responses have been documented in the HPI. ROS Other: All systems not noted in ROS Statement are negative. Past Medical History Past Medical History: Dementia, Diabetes Mellitus, Hypertension, Renal Disease Additional Past Medical History / Comment(s): stage 3 History of Any Multi-Drug Resistant Organisms: CRE Date of last positivie culture/infection: 08/19/24 MDRO Source:: RT FOOT Past Surgical History: Joint Replacement Additional Past Surgical History / Comment(s): rt hip replacement 2012, bka left ampuatation Past Anesthesia/Blood Transfusion Reactions: No Reported Reaction Past Psychological History: No Psychological Hx Reported Smoking Status: Never smoker Past Alcohol Use History: None Reported Past Drug Use History: None Reported General Exam Limitations: no limitations General appearance: alert, in no apparent distress Head exam: Present: atraumatic, normocephalic Eye exam: Present: normal appearance, PERRL ENT exam: Present: normal exam Neck exam: Present: normal inspection. Absent: tenderness, meningismus Respiratory exam: Present: normal lung sounds bilaterally. Absent: respiratory distress, wheezes Cardiovascular Exam: Present: regular rate. Absent: normal rhythm, bradycardia Extremities exam: Present: other (Left BKA) Neurological exam: Present: alert, CN II-XII intact. Absent: motor sensory deficit Psychiatric exam: Present: normal affect, normal mood Skin exam: Present: warm, dry, intact Course Vital Signs 11/05/24 11/05/24 16:35 16:39 Temperature 98.5 F Pulse Rate 86 Respiratory 20 Rate Blood Pressure 126/65 O2 Sat by Pulse 98 Oximetry Medical Decision Making - Medical Decision Making Was pt. sent in by a medical professional or institution (, PA, TITLE I COORDINATOR, urgent care, hospital, or [place] health care facility...) When possible be specific @ -No Did you speak to anyone other than the patient for history (EMS, parent, family, police, friend...)? What history was obtained from this source @ -No Did you review nursing and triage notes (agree or disagree)? Why? @ -I reviewed and agree with nursing and triage notes Were old charts reviewed (outside hosp., previous admission, EMS record, old EKG, old radiological studies, urgent care reports/EKG's, [place] health care facility records)? Report findings @ -No old charts were reviewed Differential Diagnosis: Traumatic injury from fall, intracranial hemorrhage, cervical fracture or subluxation, concussion EKG interpreted by me (3pts min.). @ -Sinus rhythm right bundle branch block, rate of 83, OK interval 159, QRS dur ation 133, QTc [address] segment elevation. X-rays interpreted by me (1pt min.). @ -None done CT interpreted by me (1pt min.). @CT brain showing volume loss without intracranial hemorrhage or mass effect, no acute findings. CT cervical spine negative for fracture or subluxation U/S interpreted by me (1pt. min.). @ -None done What testing was considered but not performed or refused? (CT, X-rays, U/S, labs)? Why? @ -None What meds were considered but not given or refused? Why? @ -None Did you discuss the management of the patient with other professionals (professionals i.e. , PA, TITLE I COORDINATOR, lab, RT, psych nurse, dialysis social worker, metal neutralizer, teacher, county records management officer, case monitor)? Give summary @ -No Was smoking cessation discussed for >3mins.? @ -No Was critical care preformed (if so, how long)? @ -No Were there social determinants of health that impacted care today? How? (Homelessness, low income, unemployed, alcoholism, drug addiction, transportation, low edu. Level, literacy, decrease access to med. care, nursing home, rehab)? @ -No Was there de-escalation of care discussed even if they declined (Discuss DNR or withdrawal of care, Hospice)? DNR status @ -No What co-morbidities impacted this encounter? (DM, HTN, Smoking, COPD, CAD, Cancer, CVA, ARF, Chemo, Hep., AIDS, mental health diagnosis, sleep apnea, morbid obesity)? @ -Dementia, left BKA Was patient admitted / discharged? Hospital course, mention meds given and route, prescriptions, significant lab abnormalities, going to OR and other pertinent info. @74-year-old male with mechanical fall, possible head injury on Eliquis. No external signs of trauma. Patient vital signs are stable. Head CT is negative for intracranial hemorrhage or mass effect, cervical spine is negative for fracture or subluxation. Patient is well-appearing. Patient is stable for discharge with outpatient follow-up. Undiagnosed new problem with uncertain prognosis? @ -No Drug Therapy requiring intensive monitoring for toxicity (Heparin, Nitro, Insulin, Cardizem)? @ -No Were any procedures done? @ -No Diagnosis/symptom? @Fall Acute, or Chronic, or Acute on Chronic? @ -Acute Uncomplicated (without systemic symptoms) or Complicated (systemic symptoms)? @ -Default Side effects of treatment? @ -No Exacerbation, Progression, or Severe Exacerbation? @ -No Poses a threat to life or bodily function? How? (Chest pain, USA, NC, pneumonia, PE, COPD, DKA, ARF, appy, cholecystitis, CVA, Diverticulitis, Homicidal, Suicidal, threat to staff... and all critical care pts) @ -No - Lab Data Result diagrams: 11/05/24 17:10 Lab Results 11/05/24 Range/Units 17:10 WBC 11.67 H (4.50-10.00) 10*3/uL RBC 5.11 (4.40-5.60) 10*6/uL Hgb 14.0 (13.0-17.0) g/dL Hct 41.6 (39.6-50.0) % MCV 81.4 (80.0-97.0) fL MCH 27.4 (27.0-32.0) pg MCHC 33.7 (32.0-37.0) g/dL Plt Count 290 (140-440) 10*3/uL MPV 9.9 (9.5-12.2) fL Immature Gran % (Auto) 0.5 % Neutrophils % 64.1 % Lymphocytes % 20.0 % Monocytes % 8.9 % Eosinophils % 5.7 % Basophils % 0.8 % Immature Gran # 0.06 H (0.00-0.04) 10*3/uL Neutrophils # 7.48 (1.80-7.70) 10*3/uL Lymphocytes # 2.33 (0.90-5.00) 10*3/uL Monocytes # 1.04 H (0.20-1.00) 10*3/uL Eosinophils # 0.67 H (0.04-0.35) 10*3/uL Basophils # 0.09 (0.00-0.10) 10*3/uL Disposition Clinical Impression: Fall Disposition: HOME SELF-CARE Condition: Fair Instructions (If sedation given, give patient instructions): Fall Prevention for Older Adults (ED) Is patient prescribed a controlled substance at d/c from ED?: No Referrals: Jose Lozada MD [Primary Care Provider] - 1-2 days Time of Disposition: 17:01
--- NOTE | 2024-11-05 16:57 | CT ---
EXAMINATION TYPE: CT brain cspine wo con DATE OF EXAM: 11/05/2024 COMPARISON: 08/17/2024 CLINICAL INDICATION: Male, 74 years old with history of fall on thinner; [facility], fall on thinners TECHNIQUE: CT scan of the head and cervical spine are performed without contrast. CT DLP: 1451.[address] CTDI: mGy Automated exposure control for dose reduction was used. FINDINGS: There is no acute intracranial hemorrhage, mass effect, or midline shift identified. The ventricles and sulci are within normal limits in size. The globes are intact and the visualized sinuses are karon ar. Cervical spine is visualized in its entirety from C1 through upper thoracic levels and demonstrates s atisfactory alignment without evidence of acute fracture or dislocation. Prevertebral soft tissue ap pears within normal limits. Moderate multilevel degenerative changes. The C1-C2 articulation is unrem arkable. IMPRESSION: 1. There is no acute fracture or dislocation evident in the cervical spine. 2. No acute intracranial hemorrhage, mass effect, or midline shift is seen. [facility], , 11/05/2024 4:55 PM
[2024-11-05 17:13] LABS: Basophils # (A) 0.09 10*3/uL (0.00-0.10); Basophils % (A) 0.8 %; Eosinophils # (A) 0.67 10*3/uL (0.04-0.35); Eosinophils % (A) 5.7 %; HCT 41.6 % (39.6-50.0); HGB 14.0 g/dL (13.0-17.0); Lymphocytes # (A) 2.33 10*3/uL (0.90-5.00); Lymphocytes % (A) 20.0 %; MCH 27.4 pg (27.0-32.0); MCHC 33.7 g/dL (32.0-37.0); MCV 81.4 fL (80.0-97.0); Monocytes # (A) 1.04 10*3/uL (0.20-1.00); Monocytes % (A) 8.9 %; Neutrophils # (A) 7.48 10*3/uL (1.80-7.70); Neutrophils % (A) 64.1 %; Platelet Count 290 10*3/uL (140-440); RBC 5.11 10*6/uL (4.40-5.60); RDW 14.3 % (11.5-14.5); WBC 11.67 10*3/uL (4.50-10.00)
[2024-11-05 17:25] LABS: African American GFR (CKD) 57 (>60 ml/min/1.73 sqM); Anion Gap 13 mmol/L; Blood Urea Nitrogen 47 mg/dL (9-20); Carbon Dioxide 23 mmol/L (22-30); Chloride 97 mmol/L (98-107); Glucose 197 mg/dL (74-99); Potassium 4.3 mmol/L (3.5-5.1); Sodium 133 mmol/L (137-145)
[2024-11-05 17:26] LABS: ALT 18 U/L (4-49); AST 25 U/L (17-59); Albumin 4.0 g/dL (3.5-5.0); Alkaline Phosphatase 88 U/L (38-126); Calcium 9.6 mg/dL (8.4-10.2); Non-African American GFR(CKD) 49 (>60 ml/min/1.73 sqM); Total Protein 7.1 g/dL (6.3-8.2)
[2024-11-05] MEDS: SODIUM CHLORIDE 0.9% 1,000 ML IV ONE (17:52)
[2024-11-05 17:53] VITALS: BP 111/68; PULSE 81
== END 2024-11-05 18:40 | disposition home or self-care (01) ==
LOC: EC 16:33
DX: Z04.3 Encounter for examination and observation following other accident (principal); F03.90 Unspecified dementia, unspecified severity, without behavioral disturbance, psychotic disturbance, mood disturbance, and anxiety; Z89.512 Acquired absence of left leg below knee
CPT/HCPCS: 36415; 70450; 72125; 80053; 85025; 96360; 99284